=== PATIENT | female | born 1950 | race Caucasian/White ===

== ENCOUNTER → 2021-08-28 15:33 | Outpatient (CLI) | payer MEDICARE, SELFPAY ==
--- NOTE | 2021-08-28 15:42 | DI.ECHO.S_ITS ---
[facility]---------+ [facility] +---------+ : : [address] : : : : [id number] : : : : Phone: [phone]+ Echocardiogram Report + + :Name: BARRETT FOUNTAIN Study Date: 08/28/2021 Height: 65 in : :[facility] ReadingLocation: Weight: 212 lb : : Gender: Female BSA: 2.0 m2 : :: 1950 Age: 71 yrs BP: 169/95 mmHg: :Reason For Study: Atrial fibrillation : :Ordering Physician: KASANDRA, : :FIONA Performed By: Rosalino Ruvalcaba : :Referring: FIONA DENT : + + Interpretation Summary 1) Normal left ventricular thickness, size, wall motion, and systolic function (EF 55-60%). 2) Normal right ventricular size and function. 3) There is a bioprosthetic aortic valve that is well seated and opens well with mean gradient of 9mmHg. Trace aortic regurgitation present. 4) No prior Echo available for comparison. Procedure: A two-dimensional transthoracic echocardiogram with color flow and Doppler was performed. The study quality was technically adequate. There is no prior echocardiogram noted for this patient. Left Ventricle: The left ventricle is normal in size and wall thickness. Left ventricular systolic function is normal. The ejection fraction is estimated to be 55-60%. There are no focal wall motion abnormalities. Right Ventricle: The right ventricle is normal in size and function. Atria: The left atrium is moderately dilated. Right atrial size is normal. The interatrial septum grossly appears intact with no obvious evidence for an atrial septal defect. Mitral Valve: There is mild mitral annular calcification. There is trace mitral regurgitation. Aortic Valve: There is a bioprosthetic aortic valve. The prosthetic aortic valve is well-seated. There is probable normal prosthetic aortic valve function. The aortic valve mean gradient is 9 mmHg. There is trace aortic regurgitation. Tricuspid Valve: The tricuspid valve is normal in structure and function. There is mild tricuspid regurgitation. Pulmonic Valve: The pulmonic valve is not well seen, but is grossly normal. There is a trace or physiologic amount of pulmonic regurgitation. Great Vessels: The aortic root is not well visualized. The dimensions of the ascending aorta are normal. The IVC is of normal diameter and collapses greater than 50% with a sniff. This suggests a low right atrial pressure of 3 mm Hg. Pericardium/ Pleura There is no pericardial effusion. There is no pleural effusion. MMode/2D Measurements & Calculations LVIDd: 5.5 cm asc Aorta Diam: 3.2 cm LVIDs: 3.8 cm FS: 31.6 % IVSd: 0.84 cm LVPWd: 0.98 cm LV rudd. diameter/BSA (cm/m^2): 2.7 LV sys. diameter/BSA (cm/m^2): 1.9 LA A2 area: 23.6 cm2 RA long axis: 4.4 cm LA A4 area: 22.3 cm2 RA area: 13.4 cm2 LA length (vol): 5.9 cm RA vol: 34.8 ml LA vol: 75.2 ml RA : 17.2 ml/m2 LA vol index: 37.1 ml/m2 TAPSE: 1.9 cm Doppler Measurements & Calculations Ao V2 max: 197.4 cm/sec LVOT Max Song: 103.0 cm/sec Ao V2 mean: 143.7 cm/sec LV V1 max P.2 mmHg Ao max P.6 mmHg LV V1 VTI: 28.6 cm Ao mean P.2 mmHg sev ratio: 0.60 Ao V2 VTI: 47.6 cm MV E max song: 109.9 cm/sec TR max song: 222.4 cm/sec MV A max song: 107.7 cm/sec TR max P.8 mmHg MV E/A: 1.0 Med Peak E' Song: 6.6 cm/sec E/E' med: 16.7 Lat Peak E' Song: 9.4 cm/sec E/E' lat: 11.7 E/e' average: 14.2 MV dec time: 0.28 sec Reading Physician:09:51 AM
== END ==
PROVIDERS: Referring Provider Internal Medicine Cardiovascular Disease; Visit Provider Internal Medicine Cardiovascular Disease
DX: I07.1 Rheumatic tricuspid insufficiency (principal); I48.0 Paroxysmal atrial fibrillation; Z95.2 Presence of prosthetic heart valve
CPT/HCPCS: 93306

== ENCOUNTER → 2021-09-02 11:16 | Outpatient (CLI) | payer MEDICARE, SELFPAY ==
--- NOTE | 2021-09-02 | DI.CT.S_ITS ---
PROCEDURE: CT UE RT WO CON INDICATIONS: Primary osteoarthritis, right shoulder TECHNIQUE: Noncontrast 1-1.5 mm thick sections acquired from the acromioclavicular joint to the inferior scapula, with coronal and sagittal reformatting. COMPARISON: SNO Outside Film, CR, XR SHOULDER 2+ VIEWS BILATERAL, 06/08/2021, 14:24. FINDINGS: Image quality: Excellent. Bones: Severe right glenohumeral joint osteoarthritic changes are seen with near complete loss of joint space, extensive subchondral sclerosis, cyst formation and prominent inferior marginal osteophyte formation. There is no fracture or dislocation. Moderate acromioclavicular joint osteoarthritic changes are seen with joint space narrowing, subchondral sclerosis and cyst formation and inferior marginal osteophyte formation depressing on musculotendinous junction of supraspinatus. Visualized right upper ribs are intact. Soft tissues: There is no full-thickness rotator cuff tendon rupture. Mild to moderate supraspinatus muscle atrophy is noted on sagittal images. No significant joint effusion. No abnormal soft tissue calcifications. Calcified pleural plaques are noted along anterior aspect of right upper lobe suggestive of prior asbestos exposure. Rest of right upper lung field is clear. IMPRESSION: 1. Severe right glenohumeral joint osteoarthritis and moderate acromioclavicular joint osteoarthritis. No fracture or dislocation. No suspicious bony lesion. 2. No full-thickness rotator cuff tendon rupture. Mild to moderate supraspinatus muscle atrophy. No significant joint effusion or abnormal soft tissue calcifications. 3. Incidentally noted of calcified pleural plaques along anterior aspect of right upper lobe and likely represent prior asbestos exposure. Dictated by: Armin Odonnell M.D. on 09/02/2021 at 11:37 Approved by: Armin Odonnell M.D. on 09/02/2021 at 11:52
== END ==
PROVIDERS: Referring Provider Orthopaedic Surgery; Visit Provider Orthopaedic Surgery
DX: M19.011 Primary osteoarthritis, right shoulder (principal); J92.9 Pleural plaque without asbestos
CPT/HCPCS: 73200

== ENCOUNTER → 2021-09-23 09:21 | Outpatient (CLI) | payer MEDICARE, SELFPAY ==
[2021-09-23 12:24] LABS: COVID19 -Nasal RAPID Negative (Negative)
== END ==
PROVIDERS: PCP Acupuncturist; Visit Provider Family Medicine Sleep Medicine
DX: Z20.822 Contact with and (suspected) exposure to COVID-19 (principal)
CPT/HCPCS: 87635

== ENCOUNTER → 2021-09-23 09:32 | Outpatient (CLI) | payer MEDICARE, SELFPAY ==
[2021-09-23 10:50] LABS: Add Manual Diff / Slide Review NO; Basophils Absolute Auto 100 /uL (0-100); Basophils Percent Auto 0.8 % (0-2); Eosinophils Absolute Auto 200 /uL (0-450); Eosinophils Percent Auto 3.6 % (2-4); Hematocrit 37.4 % (36-46); Hemoglobin 12.4 g/dL (12.0-16.0); Lymphocytes Absolute Auto 1300 /uL (1100-4500); Lymphocytes Percent Auto 20.8 % (25-40); Mean Corpuscular HGB Conc 33.2 % (30-36); Mean Corpuscular Hemoglobin 28.5 PG (26-34); Mean Corpuscular Volume 85.7 fL (80-100); Monocytes Absolute Auto 500 /uL (0-900); Monocytes Percent Auto 7.5 % (3-14); Neutrophils Absolute Auto 4300 /uL (1500-7000); Neutrophils Percent Auto 67.3 % (50-75); Platelet Count 224 X10^3/uL (150-400); Red Blood Cell Count 4.37 X10^6/uL (4.0-5.2); Red Cell Distribution Width 16.7 % (11.6-14.8); White Blood Cell Count 6.4 X10^3/uL (4.5-11.0)
[2021-09-23 11:04] LABS: BUN Creatinine Ratio 18.2 (6-22); Blood Urea Nitrogen 26 mg/dL (7-17); Calcium 9.1 mg/dL (8.4-10.2); Carbon Dioxide 26 mmol/L (22-32); Chloride 102 mmol/L (98-107); Estimated Glomerular Filt Rate 39 mL/min (>60); Glucose 109 mg/dL (80-110); HEMOLYSIS < 15 (0-50); Potassium 4.4 mmol/L (3.4-5.1); Sodium 136 mmol/L (137-145)
[2021-09-23 11:36] LABS: INR 1.1 (0.9-1.3); Prothrombin Time 12.1 SECONDS (10.1-12.7)
== END ==
PROVIDERS: PCP Acupuncturist; Referring Provider Orthopaedic Surgery; Visit Provider Orthopaedic Surgery
DX: Z51.81 Encounter for therapeutic drug level monitoring (principal); Z01.812 Encounter for preprocedural laboratory examination; Z20.822 Contact with and (suspected) exposure to COVID-19
CPT/HCPCS: 36415; 80048; 85025; 85610; 87635; C9803

== ENCOUNTER 2021-09-24 06:11 | Day surgery (SDC) | payer MEDICARE, SELFPAY ==
[2021-09-17 13:28] VITALS: BMI 35.2
[2021-09-24] VITALS (12 sets, daily range): BP systolic 78–125; BP diastolic 44–74; PULSE 78–110; RESP 14–21; TEMP 35.9–36.6; O2SAT 90–98; BMI 35.2; BMI 35.9
[2021-09-24] MEDS: ACETAMINOPHEN 325 MG TABLET 975 MG PO (07:20)
[2021-09-24] MEDS: PREGABALIN 75 MG CAPSULE PO (07:21)
[2021-09-24] MEDS: CELECOXIB 200 MG CAPSULE PO (07:21)
[2021-09-24] MEDS: VANCOMYCIN 1,000 MG/200 ML PIGGYBACK 200 MG IV ×2 (07:22→18:01)
[2021-09-24] MEDS: LACTATED RINGERS 1,000 ML 42 ML IV (07:22)
--- NOTE | 2021-09-24 07:36 | P.HP_ITS ---
History of Present Illness History of Present Illness Date Patient Seen: 09/24/21 Time Patient Seen: 07:20 Chief complaint: RIGHT TOTAL SHOULDER ARTHROPLASTY *OPB* Narrative: 71-year-old female longstanding shoulder pain due to significant glenohumeral joint arthritis Patient History Medical History Breast cancer (1995) CHF (congestive heart failure) Chronic pain CKD (chronic kidney disease), stage III Dementia with behavioral disturbance Depression Diverticulitis Generalized anxiety disorder HLD (hyperlipidemia) HTN (hypertension) IBS (irritable bowel syndrome) Narcotic dependency, continuous PAF (paroxysmal atrial fibrillation) Vertigo Surgical History H/O aortic valve replacement (02/2012) History of colon surgery History of hysterectomy History of total left knee replacement History of total replacement of right hip Hx of bariatric surgery Hx of bilateral mastectomy (1995) Hx of esophagogastroduodenoscopy Family & Social History Social History: household members children Prior Living Arrangements House Safety & Behavioral: Feels Safe in Current Yes Environment Been Physically Hurt or No Threatened By a Person Suicidal Ideation Description None Suicide Plan Description No Plan Tobacco & Substance use: Smoking Status Never smoker alcohol intake former Substance Use Type does not use Meds Home Medications and Allergies Home Medications Medication Instructions Recorded Confirmed Type albuterol sulfate 90 mcg/actuation 2 puff INHALATION Q4-6H PRN 09/17/21 09/17/21 History aerosol inhaler diltiazem HCl 240 mg 240 mg PO DAILY 09/17/21 09/17/21 History capsule,extended release 24 hr gabapentin 100 mg capsule 200 mg PO BID 09/17/21 09/17/21 History hydromorphone 4 mg tablet 4 mg PO QID 09/17/21 09/17/21 History levothyroxine 75 mcg tablet 75 mcg PO DAILY 09/17/21 09/17/21 History lisinopril 10 mg tablet 10 mg PO DAILY 09/17/21 09/17/21 History methocarbamol 500 mg tablet 500 mg PO BID PRN 09/17/21 09/17/21 History metoprolol succinate 25 mg capsule 25 mg PO DAILY 09/17/21 09/17/21 History sprinkle, ext. release 24 hr morphine 30 mg immediate release 30 mg PO BID 09/17/21 09/17/21 History tablet pravastatin 40 mg tablet 40 mg PO DAILY 09/17/21 09/17/21 History sertraline 50 mg tablet 100 mg PO DAILY 09/17/21 09/17/21 History trazodone 50 mg tablet 25 - 50 mg PO BEDTIME PRN 09/17/21 09/17/21 History triamterene 37.5 1 tab PO DAILY 09/17/21 09/17/21 History mg-hydrochlorothiazide 25 mg tablet warfarin 2.5 mg tablet 2.5 mg PO 3XW 09/17/21 09/17/21 History warfarin 5 mg tablet 5 mg PO 4XW 09/17/21 09/17/21 History Exam Vital Signs (past 8 hours): - 09/24/21 07:01 Temperature 97.3 F L Pulse Rate 78 Respiratory Rate 16 Blood Pressure 125/65 Pulse Oximetry 98 Oxygen Delivery Method Room Air Narrative Exam Narrative: Significant decrease in range of motion to the shoulder in all planes. Pain and crepitus coming from the glenohumeral joint. No sign of any glenohumeral joint instability. No sign of any rotator cuff tears are high-riding humeral head. Normal range of motion of the elbow wrist and fingers. Brisk cap refill 2+ radial pulse. Assessment & Plan Assessment & Plan narrative: Patient with end-stage arthritic changes to the right shoulder this been unresponsive to conservative treatment. Due to this fact, patient is interested in proceeding with a total shoulder arthroplasty. Surgery has been discussed with the patient and all of her questions and concerns have been answered to her full satisfaction. The risk, benefits, alternatives, possible complications, operative course, and postop outcomes were discussed. Complications including but not limiting to bleeding, infection, fracture, nerve injury, continued pain postoperatively or instability postoperatively were discussed in detail. Medical complications including but not limited to deep venous thrombosis event, anesthesia co mplications with excessive bleeding, vascular events or cardiac events and other possible complications were discussed in detail. Need for postoperative rehabilitation and anticipated hospital stay and clinical course were discussed in detail. Patient acknowledges understanding and elects to proceed with surgery. Time Spent With Patient Critical Care time: I spent a total of [] minutes of critical care time on this patient's care today; this time is exclusive of procedural time.
--- NOTE | 2021-09-24 07:36 | PM.PREOP ---
Pre-operative Note Interval Note History & Physical reviewed/Exam performed by Physician: Yes Changes to H&P: No
--- NOTE | 2021-09-24 08:08 | SUR.PREOP ---
Block start time 0750. Monitoring initiated and maintained throughout procedure. Oxygen and medications given per anesthesiologist instructions. Patient remained stable throughout procedure, no adverse reactions noted. Block end time 0800.
[2021-09-24] MEDS: GENTAMICIN 200 MG in SODIUM CHLORIDE 0.9% 100 ML 105 MG IV (08:15)
--- NOTE | 2021-09-24 08:48 | PM.PROC.1 ---
Procedures Date/Time Date of procedure: 09/24/21 Time of procedure: 07:40 General Procedure description: Ultrasound guided interscalene brachial plexus nerve block for post op pain control after right total shoulder arthroplasty by Dr. Ferreira. Risk and benefits of procedure discussed with patient. ASA monitoring applied to patient. O2 given via nasal cannula. 1 mg Versed and 50 mcg fentanyl given for procedural sedation. Skin site was prepped with chlorhexidine and allowed to fully dry. Sterile gloves, mask, hat and probe cover were used to maintain sterility. 2% lidocaine and 30ga needle was used to make a small skin wheal at needle insertion site. Under ultrasound guidance, a 21ga 50mm Pajunk needle was directed into the interscalene groove (middle/anterior scalenes) near the brachial plexus. Patient reported no parasthesias. After negative aspiration, 20 mL 0.5% ropivicaine and 10mg dexamethasone were injected around brachial plexus. Patient tolerated procedure well.
--- NOTE | 2021-09-24 08:50 | SUR.OPER ---
Beach chair with Magali/Alta shoulder positioner. Lower body on padded OR bed. Head in foam padded head cradle, secured with straps. Non-operative arm secured <90 degrees abduction. Pillow under knees. Heels on gel. Safety belt at thigh. Cloth tape over blanket over lower legs. Positioning directed and approved by surgeon.
[2021-09-24] MEDS: LIDOCAINE 1% W/EPI 20 ML INJ (09:50)
--- NOTE | 2021-09-24 10:32 | DI.RAD.S_ITS ---
PROCEDURE: XR SHOULDER RT MIN 2V INDICATIONS: Status post total shoulder TECHNIQUE: 2 views of the shoulder were acquired. COMPARISON: None. FINDINGS: Postsurgical changes of right total shoulder arthroplasty. No shinnecock bone fracture identified. Normal position and alignment of the hardware. IMPRESSION: Expected appearance status post right total shoulder arthroplasty. Dictated by: Gavino Meza M.D. on 09/24/2021 at 15:22 Approved by: Gavino Meza M.D. on 09/24/2021 at 15:23
--- NOTE | 2021-09-24 10:37 | PM.OP.1 ---
Operative Date/Time/Diagnoses Date of procedure: 09/24/21 Time of procedure: 08:00 Pre-op diagnosis: Right shoulder arthritis Post-op diagnosis: same Procedure & Clinicians Procedure: Right total shoulder arthroplasty Same procedure as scheduled: Yes Indications: End-stage arthritis glenohumeral joint Surgeon: Colby Ferreira Senior Medical Billing Specialist: Melanie Moreno Operative Notes Findings: Significant arthritic changes to the glenohumeral joint with flattening of the humeral head and osteophytes anterior inferiorly and posteriorly. No sign of any rotator cuff tears are high-riding humeral head. Significant arthritic changes to the glenoid with full-thickness cartilage loss. Closure Type: primary Specimen(s): none sent Applied: implant(s) (Size 8 stem, medium glenoid, 50 x 19 humeral head) Estimated Blood Loss (mL): 100 Blood products transfused: none Procedure in detail: On date of service, Patient was met in the holding area. The operative site was signed and witnessed by the OR staff. The surgeries once again discussed with the patient and any remaining questions they had were answered fully. Patient was taken back to the operating theater and placed on the operating table in a supine position. Great care was taken to ensure that all bony prominences were properly padded. Patient was then placed into the beach chair position. The head and neck were properly positioned and secured. A timeout was performed verifying patient's name, procedure, and the operative site. The upper extremity was then prepped and draped in the normal sterile fashion. Previously, the bony anatomy and incision were marked out as well as injected with Marcaine with epinephrine. A deltopectoral approach was performed. 10 blade was used to incise the skin and fascial tissue. A deep knife was used to continue sharp dissection until the cephalic vein was visualized. The cephalic vein was dissected free allowing us to expose the deltopectoral interval. This interval was then developed. A Hunt elevator was used to free up the deltoid of any scarring both superficially as well as deeply. The vein and the deltoid were taken laterally while the pectoralis was taken medially. This gave us good visualization of the strap muscles. The clavipectoral fascia was removed and the strap muscles were then retracted medially with the pectoralis. This gave us stabilization of the subscapularis. The circumflex vessels were ligated and the subscapularis was sharply excised off the lesser tuberosity and then tagged. Once the subscapularis was released we're able to dislocate the shoulder. Patient had end-stage arthritic changes to the humeral head as well as the glenoid with large osteophytes anterior inferiorly as well as posteriorly. A Ronger was then used to remove the osteophytes. See findings above for descriptions of the humeral head and glenoid. Next, cutting guide was placed and a saw was used to remove the humeral head. Once the head was removed it was templated. A 50/19 head gave us the best coverage. A starting awl was then used to find the canal and then the humerus was reamed and broached. Trial stem was placed and a variety of heads were trialed. A size 8 stem gave us the best fit. Protector placed for the osteotomy was then placed and and we turned our attention back to the subscapularis as well as the glenoid. The subscapularis was freed up and a 360? fashion. The degenerative anterior and inferior capsular tissue was removed. This was followed by removing the degenerative labral tissue from around the glenoid as well as the biceps insertion. Retractors were used to protect the axillary nerve while we remove the degenerative capsular and labral tissue. This gave us good visualization of the glenoid. Glenoid trials were used until we found the appropriate fit and curvature. A large glenoid provided the best fit. The center hole was drilled followed by reaming of the glenoid. The wound was copiously irrigated after reaming. Next the pegs were drilled and a trial glenoid was impacted into place. Once we were satisfied with the preparation of the glenoid, the final component was cemented into place. This was followed by impaction. We Return to our attention back to the humerus. The protector plate was removed and heads were trialed once again until we found the appropriate fit. Once again the 50/19 head provided the best coverage as well as stability to the glenohumeral joint. Trials were removed and bone tunnels were made into the humeral neck. #2 FiberWire were passed through the bone tunnels for eventual subscapularis repair. The final stem and head were impacted into place and the shoulder was reduced. It was taken through range of motion and was felt to be stable in both posterior translation as well as external and internal rotation with abduction. The subscapularis was repaired back to the lesser tuberosity through the bone tunnels. This was then reinforced with soft tissue repair. Part of the rotator interval was then closed. A drain was placed and the rest of the wound was closed in a layered fashion. The shoulder was then cleaned dried and dressed and the patient was taken to the PACU in stable condition. Patient will follow our postoperative protocol for total shoulder arthroplasty. Complications: none Post-operative Condition: stable Disposition: Acute Care Plan for aftercare: Patient will follow our postoperative protocol for total shoulder arthroplasty. Patient can be discharged home tomorrow if pain adequately controlled.
[2021-09-24] MEDS: LACTATED RINGERS 1,000 ML 125 ML IV ×2 (12:00→18:13)
--- NOTE | 2021-09-24 12:31 | PC.NURSE ---
Day shift: Pt on unit from PACU at approx 1120. Shoulder dressing is CDI. Pt can move bilat fingers. Oriented to room and call light. Bed alarm is on. Tolerating SCD's. Instructed on I.S. use. Call light in reach. She is A&Ox4. Calm and cooperative w/ care. Denies any nausea. Eating lunch now.
[2021-09-24] MEDS: HYDROMORPHONE 4 MG TABLET PO ×3 (12:42→20:20)
--- NOTE | 2021-09-24 14:20 | PT.IIE ---
Current Diagnoses Primary osteoarthritis, right shoulder (09/24/21) Surgery Performed Operation Date: 09/24/21 07:45 Actual Procedures p Total Shoulder Arthroplasty Right(Right) - Colby Ferreira MD Medical History (Last Reviewed 09/24/21 @ 07:38 by Colby Ferreira MD) Breast cancer (1995) CHF (congestive heart failure) Chronic pain CKD (chronic kidney disease), stage III Dementia with behavioral disturbance Depression Diverticulitis Generalized anxiety disorder HLD (hyperlipidemia) HTN (hypertension) IBS (irritable bowel syndrome) Narcotic dependency, continuous PAF (paroxysmal atrial fibrillation) Vertigo Physical Therapy Inpatient Evaluation/Re-Eval M1 PT/OT-IP Prior Functional Status Start: 09/24/21 15:47 Freq: NEEDED Status: Active Protocol: Document 09/24/21 14:20 AB (Rec: 09/24/21 16:01 AB [id number]) Medical Review Prior Functional Status Medical History Reviewed Yes Communication able to make needs known Mobility and Gait pt stated that she is modified independent with all mobilities and ambulation using SPC Social History Household Members children Living Arrangements House Number of Floors (Floors) One Floor Number of Stairs To Enter/Railing? ramp to enter Home Environment High Toilet,Walk in Shower, Ramp Home Equipment Straight Cane,Shower Seat with Backrest,Hand Held Shower, Grab Bars In Shower Additional Social History Comment pt has her daughter to assist her at home M2 PT-IP Current Condition Start: 09/24/21 15:47 Freq: NEEDED Status: Active Protocol: Document 09/24/21 14:20 AB (Rec: 09/24/21 16:01 AB [email or web address]) Physical Therapy Current Condition Current Condition Evaluation Date 09/24/21 Treatment Diagnosis s/p R TSA; difficulty in walking Onset Date 09/24/21 M3 PT-IP Subjective Start: 09/24/21 15:47 Freq: NEEDED Status: Active Protocol: Document 09/24/21 14:20 AB (Rec: 09/24/21 16:01 AB [email or web address]) Subjective Physical Therapy Visit Type Type Initial Evaluation Visit Start Time 14:20 Visit Stop Time 15:10 Total Visit Minutes 50 Number of MUSKRAT TRAPPER Visits 0 Physical Therapy Visit Comments Patient Comments agreeable to do PT Therapy Pain Assessment Pain Present Pain Present Denied Pain M4 PT-IP Mobility and Gait Start: 09/24/21 15:47 Freq: NEEDED Status: Active Protocol: Document 09/24/21 14:20 AB (Rec: 09/24/21 16:01 AB [id number]) PT-Bed Mobility Assessment Supine to Sit Supine to Sit Maximum Assistance,Head of Bed Elevated,Bedrails Sit to Supine Sit to Supine Standby Assistance PT-Transfer Assessment Sit to and From Stand Sit to and from Stand Minimal Assistance,Moderate Assistance,1 Person Assistance ,Use of Upper Extremities Equipment Transfer Assistive Device Gait Belt,Straight Cane Orthotic/Prosthetic Devices or Brace: Yes Comments Mobility Comments educated pt on shoulder precautions. completed supine to sit max A and has HOB elevated up. pt stated that she usually pushes with her RUE but now unable due to sx. pt able to sit on EOB SBA. assisted with sling management . educated pt with pendulum and elbow/wrist/hand exercises . pt still does not have motor control on RUE and will not be safe attempting pendulum exercise. pt completed sit to stand min to mod A and cues and ambulated in room using SPC min to mod A. presents with antalgic gait with increase LLE external rotation. pt stated that L hip is due for a replacement. pt stated that she is tired and just wants to go back to bed. completed sit to supine SBA. positioned pt in bed. call light and table placed within reach. informed pt regarding caregiver training and agreed. stated that I can call her daughter to arrange at 10 am tomorrow. PT called daughter and daughter agreed. Gait Assessment Gait Gait Assistance Required: Minimum Assistance,Moderate Assistance Distance (Feet) 15 Able to Maintain Weight Bearing Status Yes During Gait Assistive Devices Assistive Device Gait Belt,Straight Cane Orthotic/Prosthetic Devices or Brace: No Gait Deviations General Gait Pattern Antalgic,Decreased Stride Length,Decreased Feet Clearance Factors Limiting Gait Function Factors Limiting Gait Function Decreased Activity Tolerance, Decreased Sensation,Decreased Strength,Limited Range of Motion,Poor Balance,Poor Safety Awareness PT-Balance Assessment Sitting Balance and Reactions Static Sitting Balance Ability Good Dynamic Sitting Balance Ability Good Standing Balance and Reactions Static Standing Balance Ability Fair Dynamic Standing Balance Ability Fair Device Used SPC M5 PT-IP Objective Assessments Start: 09/24/21 15:47 Freq: NEEDED Status: Active Protocol: Document 09/24/21 14:20 AB (Rec: 09/24/21 16:01 AB [id number]) Orientation Orientation/Cognition Level of Alertness Alert Orientation Name,Place,Situation Language Function Ability No Deficits Noted Safety Awareness Decreased Safety Awareness Memory Description No Deficits Noted Gross Range of Motion Lower Extremity ROM Assessment Within Functional Limits Strength Lower Extremity Strength Assessment Left Impaired Hip 3+/5 Knee 4-/5 Sensation Assessment Sensation Gross Sensation Right UE Impaired Light Touch Absent Proprioception (Position) Absent Sensation Description Numbness Muscle Tone Muscle Tone WNL No Other Assessments Other Other Assessments pt still does not have RUE motor control M6 PT-IP Treatment Start: 09/24/21 15:47 Freq: NEEDED Status: Active Protocol: Document 09/24/21 14:20 AB (Rec: 09/24/21 16:01 AB [id number]) Physical Therapy Treatment Education Education Provided Precautions,Weight Bearing Status,Post-Op Packet,Safety M7 PT-IP Assessment and Plan Start: 09/24/21 15:47 Freq: NEEDED Status: Active Protocol: Document 09/24/21 14:20 AB (Rec: 09/24/21 16:01 AB [email or web address]) PT Summary Assessment and Plan Potential Rehabilitation Potential Fair Status of Condition at Evaluation Evolving Summary Impairments Pain,ROM,Strength,Balance, Coordination,Sensation,Tone, Cognition,Bed Mobility, Transfers,Gait,Activity Tolerance Assessment Summary pt with s/p R TSA and just had sx this morning. pt currently requiring min to mod A using SPC but will likely progress during hospital stay. caregiver training set up for tomorrow at 10 am. will continue to assess progress. Goals Bed Mobility Goal Standby Assistance Transfer Goal Standby Assistance,Cane Gait Goal Standby Assistance,Cane Gait Distance 150 Days to Meet Goals 5 Frequency of Treatment Frequency Of Treatment Twice a Day Treatment Plan Physical Therapy Treatment Plan Bed Mobility Training,Transfer Training,Gait Training, Therapeutic Exercise,Balance Retraining,Post Op Education, Discharge Planning,Hot or Cold Pack,Neuromuscular Re-ed, Coordination Retraining,Manual Therapy Precautions Shoulder Precautions Sling,PROM,Internal Rotation to Body,No External Rotation, No Abduction,Forward Flexion to 90 degrees,Pendulums Weight Bearing Status Weight Bearing Status Non-Weight Bearing Allowed Weight Bearing Amount (enter % RUE NWB or #) (%) Recommendations To Nursing Amount of Assist Needed 1 Person Assist Discharge Recommendations PT Discharge Recommendations Home with 15/11 Assist Available,Home Health Transportation Needs at Discharge Private Vehicle
--- NOTE | 2021-09-24 14:59 | CM.DANOTE ---
DCP: Payor: [facility] PCP: Quincy Huerta MD Pt is a 71 y.o. F admitted to the floor for a right total shoulder arthroplasty. Pt has history of longstanding shoulder pain. Pt had surgery this morning and tolerated. Pt currently has PT orders for evaluate and treat. DCP met with pt bedside this afternoon to discuss discharge plans. Pt sitting up in bed and does not complain of pain. Pt states she is ready for discharge. Pt states her daughter lives with her in [place] and is her main source of transportation as she does not drive. Pt daughter also a nurse. Pt states that she is independent at baseline with all ADL's. Pt has never used HH before and is aware that if OP therapies are needed that her daughter would help set that up. Pt declines any needs at this time. DCP to continue to follow as anticipated discharge for tomorrow 09/25 and pending PT eval. P: Pt possible d/c tomorrow. DCP to assess tomorrow following PT eval and MD instructions. Cassia Parker RN/YARITZA Discharge Planning/Care Management CM Discharge Assessment Start: 09/24/21 14:55 Freq: Status: Active Protocol: Document 09/24/21 14:55 RACHEL (Rec: 09/24/21 14:58 AJ [id number]) Discharge Planning Assessment Assigned Erp Technical Lead Cassia Parker RN/YARITZA Advance Directives? Yes Advance Directives on File No History Provided By Patient,Medical Record Prior Living Arrangements House Household Members children Type of transporation used prior to Relies on Others admit Comment Daughter drives pt around Independent with ADL's Yes Is patient alert and oriented? Yes Caregiver for Another No Patient/Family Preference Home with Home Health,OP PT Therapy Comment Awaiting MD orders Barriers to Discharge No Discharge Plan Home Community Services Physical Therapy Referrals Initiated None needed Additional Comment At this time Whiteboard Updated in Patient Room with Yes name and ext. # of Erp Technical Lead Comment Instructed to call Review Status In Process Please Provide Date Initial DC 09/24/21 Assessment Was Performed Next Review Type Continued Stay Review Pre-Anesthesia Assessment Start: 09/17/21 13:28 Freq: Status: Complete Protocol: Document 09/17/21 13:28 CAB (Rec: 09/17/21 15:19 CAB [id number]) Pre-Anesthesia Assessment PAC Comment Pt has dementia and daughter, Grecia will be with her, she is her POA and pt lives with her . Patient Information Reviewed Via Chart Review,Phone Assessment Assessment Completed With Child Comment Daughter Grecia H&P Completed Within 30 Days Yes Comment Needs to do lab and Covid Primary Care Provider [facility] Medical Clearance Received Yes Seen Specialist in Last 12 Months Yes Specialist Seen [employer] Member,Orthopedist Comment PCP visit 07/01/21 w/clearance scanned to record Primary Language Estonian Sales Systems Engineer Required No Height 165.1 cm Weight 96.162 kg Body Mass Index (BMI) 35.2 Barriers to Learning Memory Hx Anesthesia Reactions No Hx Family Anesthesia Reaction No Hx Malignant Hyperthermia No Hx Blood Transfusions No alcohol intake former Smoking Status Never smoker Substance Use Type does not use Pain Present Pain Reported Musculoskeletal Symptoms Abnormal Gait,Difficulty Walking,Limited Range of Motion History of Falling (Recent or History of Yes ) Patient is completely paralyzed or No completely immobile Prosthesis or Orthotic Device Cane Mental Status Forgets limitations Comment Requires assistance with ambulation Is patient on oxygen? No Does patient have COLE/SOB No Hx Sleep Apnea No Currently Taking a Beta Severo Yes: Metoprolol Hx Chest Pain Yes: With over exertion, anxiety Hx SOB No Hx Syncope or Dizziness Yes: Dizziness with over exertion Anti-Coagulant Therapy Yes: Warfarin-daughter will check with coumadin clinic on when to hold Has a [employer] Member Yes: Dr. [id number] clearance 08/24/21 Cardiac Testing Yes: Echo @ [facility] 08/28/21 Hx Pacemaker/ICD No Pacemaker Rep Required? No Cardiac Clearance Received Yes Comment Cardiac records scanned and in surgery folder for dos Diet Type At Home Regular dysphagia No Gastrointestinal Symptoms Constipation Urinary Catheter Present No Hx Urinary Self Catheterization No Diabetes No Patient No Lactating No Presence of External or Internal Medical Yes Devices Have you had any close contact with No someone diagnosed with COVID-19? Received a COVID vaccine? No Marital Status Lives With children Prior Living Arrangements House Number of Floors (Floors) One Floor Support System Child/Children Does the Patient Have Assistance After Yes: Lives w/daughter Grecia Surgery who cares for pt Patient Discharge Plan Description Return Home Comment Pt advised 1-2 night length of stay per surgeon Feels Safe in Current Environment Yes Been Physically Hurt or Threatened By a No Person in Current Environment Do you have thoughts of harming yourself None or others? Are you currently considering suicide? No Do you have a plan to hurt yourself or No Plan others? Do You Have Any Spiritual Beliefs That No May Affect Your HC Choices? Do You Have Any Cultural Practices That No May Affect Your HC Choices? Comment Isaac Who Can We Speak to About Patient's Care Family, friends Identifying Code for Release of Patient Declines to issue Information Health Care Proxy/Next of Kin Grecia (daughter) Health Care Proxy Emergency Contact Name Grecia (daughter) Emergency Contact Advance Directives? Yes Advance Directives on File No Requested Patient Bring Advanced Yes Directives DOS Power of Feltmaker And Weigher Yes Power of Feltmaker And Weigher Name Grecia (daughter) Power of Feltmaker And Weigher PAC Instructions Do not shave/clip surgical site,Durable medical equipment ,Medications to take/avoid, Nasal antibiotic,No ETOH/ petroleum product on skin DOS, NPO,Post-op transportation,Pre -surgical wash,Sturdy shoes/ comfortable clothes,Do not bring valuables and remove jewelry
[2021-09-24] MEDS: WARFARIN 5 MG TABLET PO (17:27)
[2021-09-24] MEDS: MAGNESIUM HYDROXIDE 30 ML UDC PO (20:20)
[2021-09-24] MEDS: GABAPENTIN 100 MG CAPSULE 200 MG PO (20:20)
[2021-09-24] MEDS: DOCUSATE 100 MG CAPSULE PO (20:20)
[2021-09-24] MEDS: MORPHINE IR 15 MG TABLET 30 MG PO (20:20)
[2021-09-25 01:25] VITALS: BP 110/56; PULSE 89; RESP 16; TEMP 36.6; O2SAT 96
[2021-09-25] MEDS: LEVOTHYROXINE 75 MCG TABLET PO (06:48)
[2021-09-25 06:54] LABS: Hemoglobin 8.9 g/dL (12.0-16.0); Mean Corpuscular HGB Conc 32.9 % (30-36); Mean Corpuscular Hemoglobin 28.4 PG (26-34); Mean Corpuscular Volume 86.3 fL (80-100); Platelet Count 174 X10^3/uL (150-400); Red Blood Cell Count 3.12 X10^6/uL (4.0-5.2); Red Cell Distribution Width 16.6 % (11.6-14.8); White Blood Cell Count 11.2 X10^3/uL (4.5-11.0)
[2021-09-25] MEDS: PRAVASTATIN 20 MG TABLET 40 MG PO (08:48)
[2021-09-25] MEDS: DOCUSATE 100 MG CAPSULE PO (08:48)
[2021-09-25] MEDS: METOPROLOL ER 25 MG TABLET PO (08:48)
[2021-09-25] MEDS: SERTRALINE 50 MG TABLET 100 MG PO (08:48)
[2021-09-25] MEDS: MORPHINE IR 15 MG TABLET 30 MG PO (08:48)
[2021-09-25] MEDS: dilTIAZem CD 240 MG CAP PO (08:48)
[2021-09-25] MEDS: HYDROMORPHONE 4 MG TABLET PO (08:48)
[2021-09-25] MEDS: GABAPENTIN 100 MG CAPSULE 200 MG PO (08:49)
[2021-09-25 08:50] VITALS: BP 127/62; PULSE 91; RESP 18; TEMP 36.2; O2SAT 96
--- NOTE | 2021-09-25 09:14 | P.DS_ITS ---
History of Present Illness History of Present Illness Date Patient Seen: 09/25/21 Time Patient Seen: 09:14 Chief complaint: Shoulder pain Narrative: Patient's shoulder pain is well controlled with current pain meds denies fever or chills. No nausea vomiting patient assistance home. Discharge Providers Provider Discharge Date: 09/25/21 Primary care physician: Quincy Huerta LAC Consults: 09/24/21 10:29 Consult to Discharge Planning Routine Comment: Consult to Physical Therapy Evaluate & Treat Comment: Physician Instructions: Evaluate and Treat Consult to Respiratory Therapy Evaluate & Treat Comment: Physician Instructions: Evaluate and treat Discharge provider: Nam Aggarwal PA-C Summary Hospital Course Discharge Diagnosis: Right shoulder arthritis Hospital Course: Right total shoulder arthroplasty Same procedure as scheduled: Yes Indications: End-stage arthritis glenohumeral joint Surgeon: Colby Ferreira Office Services Representative: Melanie Moreno Operative Notes Findings: Significant arthritic changes to the glenohumeral joint with flattening of the humeral head and osteophytes anterior inferiorly and posteriorly.? No sign of any rotator cuff tears are high-riding humeral head.? Significant arthritic changes to the glenoid with full-thickness cartilage loss. Closure Type: primary Specimen(s): none sent Applied: implant(s) (Size 8 stem, medium glenoid, 50 x 19 humeral head) Estimated Blood Loss (mL): 100 Blood products transfused: none Patient admitted to the hospital for the above-mentioned procedure. Patient consented to the same. Patient underwent right total shoulder arthroplasty on September 24, 2021. Patient back in her room recovering well as in stable condition patient will be discharged home today after physical therapy if safe for home environment Exam Vital Signs (past 8 hours): - 09/25/21 01:25 09/25/21 08:50 Temperature 97.9 F 97.1 F L Pulse Rate 89 91 H Respiratory Rate 16 18 Blood Pressure 110/56 L 127/62 Pulse Oximetry 96 96 Oxygen Delivery Method Room Air Oxygen Flow Rate 0 Narrative Exam Narrative: 71-year-old female resting comfortably in bed having breakfast. She is in no acute distress. Motor functions intact distal right upper extremity. Good capillary refill. Sensation grossly intact to light touch. Dressing is Clean, dry, intact.. Objective Labs Result Diagrams: 09/25/21 06:14 Labs: Laboratory Results - last 24 hr 09/25/21 06:14 WBC 11.2 H D RBC 3.12 L Hgb 8.9 L Hct 27.0 L MCV 86.3 MCH 28.4 MCHC 32.9 RDW 16.6 H Plt Count 174 PFSH Medical History Breast cancer (1995) CHF (congestive heart failure) Chronic pain CKD (chronic kidney disease), stage III Dementia with behavioral disturbance Depression Diverticulitis Generalized anxiety disorder HLD (hyperlipidemia) HTN (hypertension) IBS (irritable bowel syndrome) Narcotic dependency, continuous PAF (paroxysmal atrial fibrillation) Vertigo Surgical History H/O aortic valve replacement (02/2012) History of colon surgery History of hysterectomy History of total left knee replacement History of total replacement of right hip Hx of bariatric surgery Hx of bilateral mastectomy (1995) Hx of esophagogastroduodenoscopy Social History household members: children Smoking Status: Never smoker alcohol intake: former Discharge Assessment & Plan Assessment and Plan Assessment: Patient progressing as expected status post right total shoulder arthroplasty Plan of Treatment: Discharge home today in stable condition. Discharge Plan Discharge Plan Patient Disposition: Home Discharge orders & Medications Discharge Orders: Discharge (Order); Ordered 09/25/21 Ordered By: Nam Aggarwal Prescriptions: New hydromorphone [Dilaudid] 4 mg tablet 4 mg PO Q6H PRN (Reason: pain) Qty: 40 0RF Rx Instructions: post op pain Continued methocarbamol 500 mg Tablet 500 mg PO BID PRN (Reason: Muscle Spasm) 0RF trazodone 50 mg Tablet 25 - 50 mg PO BEDTIME PRN (Reason: Insomnia) 0RF pravastatin 40 mg Tablet 40 mg PO DAILY 0RF diltiazem HCl 240 mg Capsule,Extended Release 24hr 240 mg PO DAILY 0RF warfarin 2.5 mg Tablet 2.5 mg PO 3XW 0RF levothyroxine 75 mcg Tablet 75 mcg PO DAILY 0RF morphine 30 mg Tablet 30 mg PO BID 0RF lisinopril 10 mg Tablet 10 mg PO DAILY 0RF warfarin 5 mg Tablet 5 mg PO 4XW 0RF triamterene-hydrochlorothiazid 37.5-25 mg Tablet 1 tab PO DAILY 0RF gabapentin 100 mg Capsule 200 mg PO BID 0RF albuterol sulfate 90 mcg/actuation Hfa Aerosol Inhaler 2 puff INHALATION Q4-6H PRN (Reason: Wheezing) 0RF sertraline 50 mg Tablet 100 mg PO DAILY 0RF metoprolol succinate 25 mg Capsule,Sprinkle,Er 24hr 25 mg PO DAILY 0RF Discontinued hydromorphone 4 mg Tablet 4 mg PO QID 0RF Follow up/Referrals: Quincy Huerta LAC [Primary Care Provider] - Colby Ferreira MD [Physician] - (2 weeks) Diet/Activity/Treatments Diet: Diet as Tolerated Activity: Patient will follow our postoperative protocol for total shoulder arthroplasty. Cold/Heat Therapy: Ice to shoulder as needed Skin/Wound/Dressing Care Report to your healthcare provider any signs of infection, such as:: chills, fever, increased pain, unusual drainage and unusual redness Dressing: Keep dressing clean and dry Visit Report/Discharge Packet Instructions: DI for Shoulder Replacement Stand Alone Forms: Surgery Discharge Discharge Data Primary Care Provider: Quincy Huerta Attending Provider: Colby Ferreira Quality VTE Deep Vein Thrombosis/Pulmonary Embolism Present on Admission: No
--- NOTE | 2021-09-25 09:35 | CM.DPC ---
DCP Cont.: Per MD, patient medically stable for discharge today. Pt was seen by PT yesterday and recommends home with / assist. PT is going to see pt today prior to discharge. No further needs identified. P: Pt to discharge home today via daughter POV. Pt denies any need for HH and states her daughter takes care of her needs as she is a nurse. Cassia Pinedo RN/DCP
--- NOTE | 2021-09-25 10:00 | PT.IPTN ---
Current Diagnoses Primary osteoarthritis, right shoulder (09/24/21) Surgery Performed Operation Date: 09/24/21 07:45 Actual Procedures p Total Shoulder Arthroplasty Right(Right) - Colby Ferreira MD Physical Therapy Treatment Note M2 PT-IP Current Condition Start: 09/24/21 15:47 Freq: NEEDED Status: Active Protocol: Document 09/24/21 14:20 AB (Rec: 09/24/21 16:01 AB [id number]) Physical Therapy Current Condition Current Condition Evaluation Date 09/24/21 Treatment Diagnosis s/p R TSA; difficulty in walking Onset Date 09/24/21 M3 PT-IP Subjective Start: 09/24/21 15:47 Freq: NEEDED Status: Active Protocol: Document 09/25/21 10:00 AB (Rec: 09/25/21 10:59 AB [id number]) Subjective Physical Therapy Visit Type Type Treatment Note Visit Start Time 10:00 Visit Stop Time 10:35 Total Visit Minutes 35 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 Physical Therapy Visit Comments Patient Comments agreeable to do PT Therapy Pain Assessment Pain When Pain Assessed At Rest Pain Present Pain Present Pain Reported Location shoulder Intensity 2 Scale Used Numeric (0 - 10) Pain Management Techniques Distraction,Modification of Treatment,Re-positioning, Timing of Activity with Medications M4 PT-IP Mobility and Gait Start: 09/24/21 15:47 Freq: NEEDED Status: Active Protocol: Document 09/25/21 10:00 AB (Rec: 09/25/21 10:59 AB [id number]) PT-Bed Mobility Assessment Supine to Sit Supine to Sit Maximum Assistance,Head of Bed Elevated,Bedrails Sit to Supine Sit to Supine Maximum Assistance,1 Person Assistance PT-Transfer Assessment Sit to and From Stand Sit to and from Stand Moderate Assistance,1 Person Assistance,Use of Upper Extremities Equipment Transfer Assistive Device Gait Belt,Straight Cane Orthotic/Prosthetic Devices or Brace: Yes Comments Mobility Comments caregiver trainind conducted. daughter in room. pt completed supine to sit max A and daughter was able to assist pt. pt can be impulsive and cued for safety. educated daughter regarding pt's shoulder precautions, exercises and sling management . daughter was able to put the sling on pt. pt completed sit to stand with daughter assisting mod A and pt ambulated in room using SPC with daughter also assisting. pt went back to bed. stated that she is tired and wants to rest. pt and daughter without any other concerns. call light and table placed within reach. Gait Assessment Gait Gait Assistance Required: Minimum Assistance Distance (Feet) 30 Able to Maintain Weight Bearing Status Yes During Gait Assistive Devices Assistive Device Gait Belt,Straight Cane Orthotic/Prosthetic Devices or Brace: Yes Gait Deviations General Gait Pattern Antalgic,Decreased Stride Length,Decreased Feet Clearance,Step-to Gait Factors Limiting Gait Function Factors Limiting Gait Function Decreased Activity Tolerance, Decreased Strength,Difficulty Following Directions,Limited Range of Motion,Pain,Poor Balance,Poor Safety Awareness M5 PT-IP Objective Assessments Start: 09/24/21 15:47 Freq: NEEDED Status: Active Protocol: Document 09/24/21 14:20 AB (Rec: 09/24/21 16:01 AB [id number]) Orientation Orientation/Cognition Level of Alertness Alert Orientation Name,Place,Situation Language Function Ability No Deficits Noted Safety Awareness Decreased Safety Awareness Memory Description No Deficits Noted Gross Range of Motion Lower Extremity ROM Assessment Within Functional Limits Strength Lower Extremity Strength Assessment Left Impaired Hip 3+/5 Knee 4-/5 Sensation Assessment Sensation Gross Sensation Right UE Impaired Light Touch Absent Proprioception (Position) Absent Sensation Description Numbness Muscle Tone Muscle Tone WNL No Other Assessments Other Other Assessments pt still does not have RUE motor control M6 PT-IP Treatment Start: 09/24/21 15:47 Freq: NEEDED Status: Active Protocol: Document 09/25/21 10:00 AB (Rec: 09/25/21 10:59 AB [email or web address]) Physical Therapy Treatment Exercises Exercises Shoulder Pendulums,Elbow Flexion/Extension,Wrist ROM, Hand ROM Education Education Provided Precautions,Weight Bearing Status,Post-Op Packet,Safety M7 PT-IP Assessment and Plan Start: 09/24/21 15:47 Freq: NEEDED Status: Active Protocol: Document 09/25/21 10:00 AB (Rec: 09/25/21 10:59 AB [email or web address]) PT Summary Assessment and Plan Potential Rehabilitation Potential Good Summary Impairments Pain,ROM,Strength,Balance, Coordination,Sensation,Tone, Cognition,Bed Mobility, Transfers,Gait,Activity Tolerance Progress Towards Goals Slow Progress due to Medical Issues Assessment Summary caregiver training conducted and daughter is able to assist pt safely. pt plans to go home today and may go home when medically stable. Goals Bed Mobility Goal Standby Assistance Transfer Goal Standby Assistance,Cane Gait Goal Standby Assistance,Cane Gait Distance 150 Days to Meet Goals 5 Frequency of Treatment Frequency Of Treatment Twice a Day Treatment Plan Physical Therapy Treatment Plan Bed Mobility Training,Transfer Training,Gait Training, Therapeutic Exercise,Balance Retraining,Post Op Education, Discharge Planning,Hot or Cold Pack,Neuromuscular Re-ed, Coordination Retraining,Manual Therapy Precautions Shoulder Precautions Sling,PROM,Internal Rotation to Body,No External Rotation, No Abduction,Forward Flexion to 90 degrees,Pendulums Weight Bearing Status Weight Bearing Status Non-Weight Bearing Allowed Weight Bearing Amount (enter % RUE NWB or #) (%) Recommendations To Nursing Amount of Assist Needed 1 Person Assist Discharge Recommendations PT Discharge Recommendations Home with 15/11 Assist Available,Home Health Transportation Needs at Discharge Private Vehicle
[2021-09-25 10:13] VITALS: PULSE 97
--- NOTE | 2021-09-25 11:39 | PC.NURSE ---
Day shift: Paperwork signed and all questions answered. Pt's Daughter/Caregiver in room for d/c teachings and when PT was teaching. Dressing remains CDI. Sling in place. Pt steady on feet and voiding well. Pain well controlled per JUN.
--- NOTE | 2021-09-25 11:42 | CM.MNRNOTE ---
Day shift: Left unit via at approx 1130. Taken by Chepe PEPE.
== END 2021-09-25 11:44 | disposition home or self-care (01) ==
LOC: OR 06:13 → AC 06:14
PROVIDERS: PCP Acupuncturist; Referring Provider Acupuncturist; Visit Provider Orthopaedic Surgery
PROC: 0RQJ0ZZ Repair Right Shoulder Joint, Open Approach (ICD-10-PCS; CPT 23472; principal; 2021-09-24 07:45)
DX: M19.011 Primary osteoarthritis, right shoulder (principal); I48.91 Unspecified atrial fibrillation; I13.0 Hypertensive heart and chronic kidney disease with heart failure and stage 1 through stage 4 chronic kidney disease, or unspecified chronic kidney disease; N18.30 Chronic kidney disease, stage 3 unspecified; I50.9 Heart failure, unspecified; E78.5 Hyperlipidemia, unspecified; Z79.01 Long term (current) use of anticoagulants
CPT/HCPCS: 23472; 36415; 64450; 73030; 85027; 85610; 97162; 97530; C1776; J1100; J1650; J2250; J2405; J2704; J3010

== ENCOUNTER 2022-10-11 00:44 | Day surgery (SDC) | payer OTHER, SELFPAY ==
[2021-09-24 11:21] VITALS: BMI 35.9
[2022-10-11] VITALS (25 sets, daily range): BP systolic 124–221; BP diastolic 58–92; PULSE 63–81; RESP 13–26; TEMP 36.3–37; O2SAT 91–98; BMI 33.3
--- NOTE | 2022-10-11 01:15 | ED.SKABFB ---
HPI - Skin/Abscess/Foreign Bdy General Chief complaint: Skin/Abscess/Foreign Body Stated complaint: feels like food is stuck in throat Time Seen by Provider: 10/11/22 01:15 Source: patient and family Mode of arrival: Ambulatory Limitations: no limitations History of Present Illness HPI narrative: 72-year-old woman with a history of mechanical heart valve anticoagulated on Coumadin, paroxysmal atrial fibrillation, fibromyalgia with narcotic dependence, hypothyroidism, hypertension who presents complaining that she has food stuck in her throat. At approximately 4:45 p.m. this afternoon she was eating a pork chop and the pork chop did not make it all the way to her stomach. She is been trying soda, bouncing up and down a bit, at this point she is not able to even manage secretions and is increasingly uncomfortable. She has had food feel like it stuck before but is always passed without any intervention. She describes no recent fevers, cough, chills, abdominal pain, vomiting or diarrhea. Related Data Home Medications Medication Instructions Recorded Confirmed albuterol sulfate 90 mcg/actuation 2 puff inhalation Q4-6H PRN 09/17/21 10/11/22 aerosol inhaler Wheezing diltiazem HCl 240 mg 240 mg PO DAILY 09/17/21 10/11/22 capsule,extended release 24 hr gabapentin 100 mg capsule 200 mg PO BID 09/17/21 09/17/21 levothyroxine 75 mcg tablet 75 mcg PO DAILY 09/17/21 09/17/21 lisinopril 10 mg tablet 10 mg PO DAILY 09/17/21 09/17/21 methocarbamol 500 mg tablet 500 mg PO BID PRN Muscle Spasm 09/17/21 09/17/21 metoprolol succinate 25 mg capsule 25 mg PO DAILY 09/17/21 10/11/22 sprinkle, ext. release 24 hr morphine 30 mg immediate release 30 mg PO BID 09/17/21 09/24/21 tablet pravastatin 40 mg tablet 40 mg PO DAILY 09/17/21 09/17/21 sertraline 50 mg tablet 100 mg PO DAILY 09/17/21 09/17/21 trazodone 50 mg tablet 25 - 50 mg PO BEDTIME PRN Insomnia 09/17/21 09/17/21 triamterene 37.5 1 tab PO DAILY 09/17/21 09/17/21 mg-hydrochlorothiazide 25 mg tablet warfarin 2.5 mg tablet 2.5 mg PO 3XW 09/17/21 10/11/22 warfarin 5 mg tablet 5 mg PO 4XW 09/17/21 09/17/21 Previous Rx's Medication Instructions Recorded hydromorphone 4 mg tablet 4 mg PO Q6H PRN pain #40 tabs 09/25/21 (Dilaudid) Allergies Allergy/AdvReac Type Severity Reaction Status Date / Time Latex, Natural Rubber Allergy Mild Verified 10/11/22 06:43 metal Allergy Uncoded 10/11/22 06:43 Review of Systems Review of Systems Narrative: Pertinent positive and negative findings as per HPI Patient History Medical History Breast cancer (1995) CHF (congestive heart failure) Chronic pain CKD (chronic kidney disease), stage III Dementia with behavioral disturbance Depression Diverticulitis Generalized anxiety disorder HLD (hyperlipidemia) HTN (hypertension) IBS (irritable bowel syndrome) Narcotic dependency, continuous PAF (paroxysmal atrial fibrillation) Vertigo Surgical History H/O aortic valve replacement (02/2012) History of colon surgery History of hysterectomy History of total left knee replacement History of total replacement of right hip Hx of bariatric surgery Hx of bilateral mastectomy (1995) Hx of esophagogastroduodenoscopy Social History household members: children Smoking Status: Never smoker alcohol intake: former Smoking Status: Never smoker alcohol intake frequency: 0-2 drinks per day Substance Use Type: does not use Exam Initial Vital Signs Initial Vital Signs: Vital Signs Temperature 97.4 F L 10/11/22 00:46 Pulse Rate 66 10/11/22 00:46 Respiratory Rate 18 10/11/22 00:46 Blood Pressure 210/87 H 10/11/22 00:46 Pulse Oximetry 96 10/11/22 00:46 Oxygen Delivery Method Room Air 10/11/22 00:46 General: Chronically ill-appearing woman who appears uncomfortable and is spitting out secretions. Able to cooperate fully with exam. HEENT: Moist mucous membranes, normal sclera with reactive pupils, Neck: No JVD, supple Respiratory: Lungs are clear to auscultation, no wheezing no rales no rhonchi. Full and symmetrical air movement Cardiac: Regular rate and rhythm, mechanical click with 2/6 murmur. Abdomen: Soft, mild epigastric tenderness, good bowel tones, no flank pain Skin: Warm and dry, no rashes Neurologic: Grossly neurologically intact with no obvious asymmetries or abnormalities Extremities: No trauma, well perfused, 1+ chronic lower extremity edema Psych: Cooperative, appropriate insight and affect Course Orders Ordered: ED Orders 10/11/22 01:40 Complete Blood Count AUTO DIFF Stat Comprehensive Metabolic Panel Stat Prothrombin Time INR Stat Hydromorphone HCl (Hydromorphone 0.5 Mg Inj) 1 mg IV Q15MIN PRN PRN Reason: Pain, Last Admin: 10/11/22 04:16 Dose: 1 mg Documented By: Admin: 10/11/22 01:45 Dose: 1 mg Documented By: CINDI Sodium Chloride (Normal Saline 0.9%) 1,000 mls @ 150 mls/hr IV CONT [place] Last Admin: 10/11/22 02:49 Dose: 150 mls/hr Documented By: SB Lactated Ringer's (Lactated Ringers) 1,000 mls @ 42 mls/hr IV NOW ONE Stop: 10/12/22 06:17 Last Admin: 10/11/22 06:29 Dose: 42 mls/hr Documented By: LB Discontinued Medications Sodium Chloride (Normal Saline 0.9%) 1,000 mls @ 1,000 mls/hr IV BOLUS ONE Stop: 10/11/22 02:23 Last Infusion: 10/11/22 02:49 Dose: 0 mls/hr Documented By: Admin: 10/11/22 01:45 Dose: 1,000 mls/hr Documented By: SB Vital Signs Vital signs: Vital Signs - 8 hr 10/11/22 00:46 10/11/22 00:54 10/11/22 00:55 Temperature 97.4 F L Pulse Rate 66 68 67 Respiratory Rate 18 18 16 Blood Pressure 210/87 H Pulse Oximetry 96 97 97 Oxygen Delivery Method Room Air 10/11/22 00:55 10/11/22 01:00 10/11/22 01:30 Temperature Pulse Rate 65 66 Respiratory Rate 14 16 Blood Pressure 221/84 H Pulse Oximetry 96 98 Oxygen Delivery Method 10/11/22 01:44 10/11/22 01:44 10/11/22 02:00 Temperature Pulse Rate 64 63 Respiratory Rate 23 18 Blood Pressure 217/87 H Pulse Oximetry 94 92 Oxygen Delivery Method Room Air 10/11/22 02:18 10/11/22 02:18 10/11/22 02:30 Temperature Pulse Rate 75 74 Respiratory Rate 17 16 Blood Pressure 216/88 H Pulse Oximetry 96 95 Oxygen Delivery Method 10/11/22 03:00 10/11/22 03:01 10/11/22 03:01 Temperature Pulse Rate 75 72 Respiratory Rate 20 15 Blood Pressure 180/80 H Pulse Oximetry 95 95 Oxygen Delivery Method Room Air 10/11/22 03:30 10/11/22 04:00 10/11/22 04:00 Temperature Pulse Rate 75 78 Respiratory Rate 26 H 19 Blood Pressure 201/79 H Pulse Oximetry 93 95 Oxygen Delivery Method 10/11/22 04:12 10/11/22 04:12 10/11/22 04:30 Temperature Pulse Rate 81 75 Respiratory Rate 21 17 Blood Pressure 214/92 H Pulse Oximetry 97 95 Oxygen Delivery Method 10/11/22 05:00 10/11/22 05:01 10/11/22 05:01 Temperature Pulse Rate 75 74 Respiratory Rate 14 13 Blood Pressure 179/74 H Pulse Oximetry 95 96 Oxygen Delivery Method 10/11/22 05:30 10/11/22 06:00 10/11/22 06:00 Temperature Pulse Rate 75 74 Respiratory Rate 19 20 Blood Pressure 177/73 H Pulse Oximetry 91 95 Oxygen Delivery Method 10/11/22 06:30 10/11/22 06:37 Temperature 98.0 F Pulse Rate 73 65 Respiratory Rate 17 Blood Pressure 190/78 H 171/77 H Pulse Oximetry 96 Oxygen Delivery Method Room Air MDM - Skin/Abscess/Foreign Bdy Lab Data 10/11/22 01:40 10/11/22 01:40 Labs: Lab Results 10/11/22 10/11/22 10/11/22 Range/Units 01:40 01:40 01:40 WBC 11.1 H (4.5-11.0) X10^3/uL RBC 4.24 (4.0-5.2) X10^6/uL Hgb 12.2 (12.0-16.0) g/dL Hct 37.0 (36-46) % MCV 87.4 (80-100) fL MCH 28.7 (26-34) PG MCHC 32.9 (30-36) % RDW 15.6 H (11.6-14.8) % Plt Count 206 (150-400) X10^3/uL Neut % (Auto) 76.7 H (50-75) % Lymph % (Auto) 13.6 L (25-40) % [place] % (Auto) 6.1 (3-14) % Eos % (Auto) 3.0 (2-4) % Baso % (Auto) 0.6 (0-2) % Neut # (Auto) 8500 H (6196-2599) /uL Lymph # (Auto) 1500 (4198-6415) /uL [place] # (Auto) 700 (0-900) /uL Eos # (Auto) 300 (0-450) /uL Baso # (Auto) 100 (0-100) /uL PT 18.6 H (10.1-12.7) SECONDS INR 1.6 H (0.9-1.3) Sodium 136 L (137-145) mmol/L Potassium 3.9 (3.4-5.1) mmol/L Chloride 104 (98-107) mmol/L Carbon Dioxide 28 (22-32) mmol/L BUN 17 (7-17) mg/dL Creatinine 0.98 (0.52-1.04) mg/dL Estimated GFR > 60 (>60) mL/min BUN/Creatinine Ratio 17.3 (6-22) Glucose 123 H (80-110) mg/dL Calcium 8.6 (8.4-10.2) mg/dL Total Bilirubin 0.4 (0.2-1.3) mg/dL AST 21 (14-36) IU/L ALT 17 (<35) IU/L Alkaline Phosphatase 75 (38-126) U/L Total Protein 6.8 (6.3-8.2) g/dL Albumin 3.6 (3.5-5.0) g/dL Globulin 3.2 (1.7-4.1) g/dL Albumin/Globulin Ratio 1.1 (1.0-2.8) MDM Narrative Medical decision making narrative: CC: Something is stuck in my throat, acute issue uncertain prognosis Complicating co-morbidities: Mechanical heart valve, opioid dependence, hypertension, hypothyroidism Data collected from: patient, daughter Medical records reviewed: [facility] from [facility] are reviewed Differential considered: Esophageal foreign body, esophageal stricture, bowel obstruction Exam documented above, pertinent findings include: Alert appropriate exam is benign with the exception of discomfort in the lower esophagus in the fact that she continues to spit her own secretions because she can not swallow Lab Test results independently reviewed as above. Pertinent findings: Independently reviewed EKG as above Imaging studies independently reviewed: Consultations: Care is reviewed with Dr. Owen, general surgery on-call. Patient will need to go to the OR for impacted esophageal foreign body Treatments: Fluids, pain control Re-evaluations: Discussion: 72-year-old woman who was eating pork chops this afternoon. At 4:45 a.m. she felt a bit of the pork chop stick in the lower esophagus and it has not moved since. She is not able to swallow any secretions. She is uncomfortable. Care is reviewed with Dr. Owen. Will make sure that the patient is comfortable and better hydrated over the course of the evening and in the charging plug placer hours will anticipate patient going to the operating room for surgical removal of impacted foreign body. to the OR at 645 am Discharge Plan Departure Patient Disposition: Admitted to Surgery Clinical Impression: Esophageal foreign body Admit Date/Time: 10/11/22 07:04 Admit Provider: Jerrica Owen
[2022-10-11] MEDS: HYDROMORPHONE 0.5 MG INJ 1 MG IV ×2 (01:45→04:16)
[2022-10-11] MEDS: SODIUM CHLORIDE 0.9% 1,000 ML 1000 ML IV (01:45)
[2022-10-11 02:01] LABS: INR 1.6 (0.9-1.3); Prothrombin Time 18.6 SECONDS (10.1-12.7)
[2022-10-11 02:05] LABS: Add Manual Diff / Slide Review NO; Basophils Absolute Auto 100 /uL (0-100); Basophils Percent Auto 0.6 % (0-2); Eosinophils Absolute Auto 300 /uL (0-450); Hemoglobin 12.2 g/dL (12.0-16.0); Lymphocytes Absolute Auto 1500 /uL (1100-4500); Lymphocytes Percent Auto 13.6 % (25-40); Mean Corpuscular HGB Conc 32.9 % (30-36); Mean Corpuscular Hemoglobin 28.7 PG (26-34); Mean Corpuscular Volume 87.4 fL (80-100); Monocytes Absolute Auto 700 /uL (0-900); Monocytes Percent Auto 6.1 % (3-14); Neutrophils Absolute Auto 8500 /uL (1500-7000); Neutrophils Percent Auto 76.7 % (50-75); Platelet Count 206 X10^3/uL (150-400); Red Blood Cell Count 4.24 X10^6/uL (4.0-5.2); Red Cell Distribution Width 15.6 % (11.6-14.8); White Blood Cell Count 11.1 X10^3/uL (4.5-11.0)
[2022-10-11 02:06] LABS: Alanine Aminotransferase 17 IU/L (<35); Albumin 3.6 g/dL (3.5-5.0); Albumin Globulin Ratio 1.1 (1.0-2.8); Alkaline Phosphatase 75 U/L (38-126); Aspartate Aminotransferase 21 IU/L (14-36); BUN Creatinine Ratio 17.3 (6-22); Bilirubin Total 0.4 mg/dL (0.2-1.3); Blood Urea Nitrogen 17 mg/dL (7-17); Calcium 8.6 mg/dL (8.4-10.2); Carbon Dioxide 28 mmol/L (22-32); Chloride 104 mmol/L (98-107); Estimated Glomerular Filt Rate > 60 mL/min (>60); Globulin 3.2 g/dL (1.7-4.1); Glucose 123 mg/dL (80-110); HEMOLYSIS < 15 (0-50); Potassium 3.9 mmol/L (3.4-5.1); Sodium 136 mmol/L (137-145); Total Protein 6.8 g/dL (6.3-8.2)
[2022-10-11] MEDS: SODIUM CHLORIDE 0.9% 1,000 ML 150 ML IV (02:49)
--- NOTE | 2022-10-11 06:20 | P.HP_ITS ---
History of Present Illness History of Present Illness Date Patient Seen: 10/11/22 Time Patient Seen: 06:20 Chief complaint: feels like food is stuck in throat Narrative: Was eating pork around 4pm yesterday. [place] like the food stuck in lower esophagus. Difficulty with her own secretions and pain in lower chest. On Coumadin. 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 Happened once before but did not require intervention PFSH Medical History Breast cancer (1995) CHF (congestive heart failure) Chronic pain CKD (chronic kidney disease), stage III Dementia with behavioral disturbance Depression Diverticulitis Generalized anxiety disorder HLD (hyperlipidemia) HTN (hypertension) IBS (irritable bowel syndrome) Narcotic dependency, continuous PAF (paroxysmal atrial fibrillation) Vertigo Surgical History H/O aortic valve replacement (02/2012) History of colon surgery History of hysterectomy History of total left knee replacement History of total replacement of right hip Hx of bariatric surgery Hx of bilateral mastectomy (1995) Hx of esophagogastroduodenoscopy Social History household members: children Smoking Status: Never smoker alcohol intake: former Meds Home Medications and Allergies Home Medications Medication Instructions Recorded Confirmed Type albuterol sulfate 90 mcg/actuation 2 puff inhalation Q4-6H PRN 09/17/21 09/17/21 History aerosol inhaler Wheezing diltiazem HCl 240 mg 240 mg PO DAILY 09/17/21 09/24/21 History capsule,extended release 24 hr gabapentin 100 mg capsule 200 mg PO BID 09/17/21 09/17/21 History levothyroxine 75 mcg tablet 75 mcg PO DAILY 09/17/21 09/17/21 History lisinopril 10 mg tablet 10 mg PO DAILY 09/17/21 09/17/21 History methocarbamol 500 mg tablet 500 mg PO BID PRN Muscle Spasm 09/17/21 09/17/21 History metoprolol succinate 25 mg capsule 25 mg PO DAILY 09/17/21 09/24/21 History sprinkle, ext. release 24 hr morphine 30 mg immediate release 30 mg PO BID 09/17/21 09/24/21 History tablet pravastatin 40 mg tablet 40 mg PO DAILY 09/17/21 09/17/21 History sertraline 50 mg tablet 100 mg PO DAILY 09/17/21 09/17/21 History trazodone 50 mg tablet 25 - 50 mg PO BEDTIME PRN Insomnia 09/17/21 09/17/21 History triamterene 37.5 1 tab PO DAILY 09/17/21 09/17/21 History mg-hydrochlorothiazide 25 mg tablet warfarin 2.5 mg tablet 2.5 mg PO 3XW 09/17/21 09/17/21 History warfarin 5 mg tablet 5 mg PO 4XW 09/17/21 09/17/21 History hydromorphone 4 mg tablet 4 mg PO Q6H PRN pain #40 tabs 09/25/21 Rx (Dilaudid) Allergies Allergy/AdvReac Type Severity Reaction Status Date / Time Latex, Natural Rubber Allergy Mild Verified 09/24/21 08:10 metal Allergy Uncoded 09/24/21 08:11 Review of Systems Review of Systems ROS: Yes All systems reviewed with the patient and are negative except as otherwise documented Exam Vital Signs (past 8 hours): - 10/11/22 00:46 10/11/22 00:54 10/11/22 00:55 Temperature 97.4 F L Pulse Rate 66 68 67 Respiratory Rate 18 18 16 Blood Pressure 210/87 H Pulse Oximetry 96 97 97 Oxygen Delivery Method Room Air 10/11/22 00:55 10/11/22 01:00 10/11/22 01:30 Temperature Pulse Rate 65 66 Respiratory Rate 14 16 Blood Pressure 221/84 H Pulse Oximetry 96 98 Oxygen Delivery Method 10/11/22 01:44 10/11/22 01:44 10/11/22 02:00 Temperature Pulse Rate 64 63 Respiratory Rate 23 18 Blood Pressure 217/87 H Pulse Oximetry 94 92 Oxygen Delivery Method Room Air 10/11/22 02:18 10/11/22 02:18 10/11/22 02:30 Temperature Pulse Rate 75 74 Respiratory Rate 17 16 Blood Pressure 216/88 H Pulse Oximetry 96 95 Oxygen Delivery Method 10/11/22 03:00 10/11/22 03:01 10/11/22 03:01 Temperature Pulse Rate 75 72 Respiratory Rate 20 15 Blood Pressure 180/80 H Pulse Oximetry 95 95 Oxygen Delivery Method Room Air 10/11/22 03:30 10/11/22 04:00 10/11/22 04:00 Temperature Pulse Rate 75 78 Respiratory Rate 26 H 19 Blood Pressure 201/79 H Pulse Oximetry 93 95 Oxygen Delivery Method 10/11/22 04:12 10/11/22 04:12 10/11/22 04:30 Temperature Pulse Rate 81 75 Respiratory Rate 21 17 Blood Pressure 214/92 H Pulse Oximetry 97 95 Oxygen Delivery Method 10/11/22 05:00 10/11/22 05:01 10/11/22 05:01 Temperature Pulse Rate 75 74 Respiratory Rate 14 13 Blood Pressure 179/74 H Pulse Oximetry 95 96 Oxygen Delivery Method 10/11/22 05:30 10/11/22 06:00 10/11/22 06:00 Temperature Pulse Rate 75 74 Respiratory Rate 19 20 Blood Pressure 177/73 H Pulse Oximetry 91 95 Oxygen Delivery Method Oxygen Delivery Method Room Air Const General: cooperative, comfortable and frail appearing Nutritional Appearance: overweight Orientation: alert, awake and oriented x3 HENMT Head: normal to inspection, normocephalic and atraumatic Eyes General: appearance normal, both eyes and all related structures Sclera: sclerae normal Neck Neck: trachea midline Resp Effort & Inspection: normal respiratory effort and able to speak in complete sentences Cardio Rate: regular rate Rhythm: abnormal rhythm GI Palpation: soft Skin General: atrophy and lichenification Hair: brittle Neuro General: patient alert, patient awake and patient oriented x3 Psych Mental Status: mental status grossly normal Affect: normal affect Judgment: judgment good Objective Labs 10/11/22 01:40 10/11/22 01:40 Labs: Laboratory Results - last 24 hr 10/11/22 10/11/22 10/11/22 01:40 01:40 01:40 WBC 11.1 H RBC 4.24 Hgb 12.2 Hct 37.0 MCV 87.4 MCH 28.7 MCHC 32.9 RDW 15.6 H Plt Count 206 Neut % (Auto) 76.7 H Lymph % (Auto) 13.6 L [place] % (Auto) 6.1 Eos % (Auto) 3.0 Baso % (Auto) 0.6 Neut # (Auto) 8500 H Lymph # (Auto) 1500 [place] # (Auto) 700 Eos # (Auto) 300 Baso # (Auto) 100 PT 18.6 H INR 1.6 H Sodium 136 L Potassium 3.9 Chloride 104 Carbon Dioxide 28 BUN 17 Creatinine 0.98 Estimated GFR > 60 BUN/Creatinine Ratio 17.3 Glucose 123 H Calcium 8.6 Total Bilirubin 0.4 AST 21 ALT 17 Alkaline Phosphatase 75 Total Protein 6.8 Albumin 3.6 Globulin 3.2 Albumin/Globulin Ratio 1.1 Assessment & Plan Assessment & Plan narrative: Food bolus in esophagus. H/o Christal En Y gastric bypass. Plan EGD with anesthesia. NO reversal of coumadin. INR 1.6 Time Spent With Patient Time with patient: less than 30 minutes
[2022-10-11] MEDS: LACTATED RINGERS 1,000 ML 42 ML IV (06:29)
--- NOTE | 2022-10-11 07:01 | PM.OP.EGD ---
Operative Date/Time/Diagnoses Date of procedure: 10/11/22 Time of procedure: 07:01 Pre-op diagnosis: foreign body in esophagus Post-op diagnosis: same Procedure & Clinicians Study performed: EGD with general anesthesia Same procedure as scheduled: Yes Indications: foreign body in esophagus Surgeon: Jerrica Owen Procedure Notes Procedure in detail: Preop diagnosis: Foreign body in the esophagus Postop diagnosis: Same Operative procedure: EGD with removal of foreign body using general anesthetic Surgeon: Ginny Owen MD Findings: Food bolus was actually in the gastric pouch but would not proceed down the Christal Y limb. No evidence of ulceration, no evidence of stricture. Food bolus was manually pushed down the jejunal limb and flushed with water. Procedure: Patient placed in lateral position. Anesthetic was provided. Scope was inserted into the esophagus advanced down the esophagus under direct vision with insufflation. The gastric pouch was easily visualized without stricture at the GE junction or stricture at the G-J junction. There appeared to be no impediment or reason for the food bolus to remain in the pouch, but it has been there for over 16 hours without passage. Food bolus was manually pushed into the jejunal limb and flushed further with water. Insufflation and extraction of the scope showed no other abnormalities of gastric pouch or esophagus. Impression: Piece of pork sitting in the gastric pouch for over 16 hours without advancement. No evidence of ulcerations or strictures. No abnormalities of the Christal-en-Y pouch or limb. Plan: Home with advice for more thorough chewing prior to swallowing any form of meat. Findings: other findings (Food bolus in gastric pouch for 16 hours without passage) Specimen(s): none sent Complications: none
== END 2022-10-11 07:30 | disposition home or self-care (01) ==
LOC: ED 06:09 → AC 07:06 → ENDO 09:55
PROVIDERS: Emergency Provider Emergency Medicine; PCP Acupuncturist; Referring Provider Emergency Medicine; Visit Provider Surgery
PROC: 0DJ08ZZ Inspection of Upper Intestinal Tract, Via Natural or Artificial Opening Endoscopic (ICD-10-PCS; CPT 43235; principal; 2022-10-11 07:30)
DX: T17.228A Food in pharynx causing other injury, initial encounter (principal); I48.0 Paroxysmal atrial fibrillation; M79.7 Fibromyalgia; F19.20 Other psychoactive substance dependence, uncomplicated; Z79.01 Long term (current) use of anticoagulants; I13.0 Hypertensive heart and chronic kidney disease with heart failure and stage 1 through stage 4 chronic kidney disease, or unspecified chronic kidney disease; N18.30 Chronic kidney disease, stage 3 unspecified; I50.9 Heart failure, unspecified; Z95.2 Presence of prosthetic heart valve; E03.9 Hypothyroidism, unspecified
CPT/HCPCS: 43235; 36415; 80053; 85025; 85610; 96361; 96374; 96376; 99231; 99284; J1170

== ENCOUNTER 2022-12-03 17:06 | Emergency (ER) | payer OTHER, SELFPAY ==
[2021-09-24 11:21] VITALS: BMI 35.9
[2022-12-03 17:43] VITALS: BP 203/84; PULSE 77; RESP 20; TEMP 36.6; O2SAT 98; BMI 36.4
[2022-12-03 17:57] VITALS: PULSE 79; RESP 29
[2022-12-03 17:58] VITALS: BP 198/89; PULSE 79; RESP 20; O2SAT 97
[2022-12-03 18:00] VITALS: BP 193/92; PULSE 75; RESP 21; O2SAT 96
--- NOTE | 2022-12-03 18:00 | DI.CT.S_ITS ---
PROCEDURE: CT HEAD/BRAIN WO CON INDICATIONS: fall TECHNIQUE: Noncontrast 4.5 mm thick angled axial sections acquired from the foramen magnum to the vertex, with coronal and sagittal reformats. For radiation dose reduction, the following was used: automated exposure control, adjustment of mA and/or kV according to patient size. COMPARISON: None. FINDINGS: Image quality: Excellent. CSF spaces: Basal cisterns are patent. No extra-axial fluid collections. The ventricles are symmetric in size and shape. Brain: No intracranial bleeds or masses. There is cerebral volume loss for age, with resultant ventricular and sulcal prominence. There are periventricular and deep white matter chronic small vessel ischemic changes. There is intracranial internal carotid artery atherosclerosis. Skull and face: Right periorbital soft tissue swelling. Calvarium and visualized facial bones appear intact, without suspicious lesions. Sinuses: Visualized sinuses and mastoids are clear. IMPRESSION: 1. No acute intracranial abnormality. Dictated by: Sakshi Crocker M.D. on 12/03/2022 at 18:55 Approved by: Sakshi Crocker M.D. on 12/03/2022 at 18:55
--- NOTE | 2022-12-03 18:01 | DI.RAD.S_ITS ---
PROCEDURE: XR KNEE RT 3V INDICATIONS: fall TECHNIQUE: 3 views of the knee were acquired. COMPARISON: None. FINDINGS: Bones: No fractures or dislocations. No suspicious bony lesions. Knee arthroplasty has been performed. Soft tissues: No joint effusion. No suspicious soft tissue calcifications. IMPRESSION: Postsurgical sequelae. No acute fracture. No osseous lesion. If symptoms and/or clinical suspicion for pathology persist, further assessment with repeat, or advanced imaging (e.g., CT, MRI, or bone scan) may be helpful for further assessment. Dictated by: Sakshi Crocker M.D. on 12/03/2022 at 18:52 Approved by: Sakshi Crocker M.D. on 12/03/2022 at 18:52
[2022-12-03 18:17] LABS: Add Manual Diff / Slide Review NO; Basophils Absolute Auto 100 /uL (0-100); Basophils Percent Auto 0.6 % (0-2); Eosinophils Absolute Auto 300 /uL (0-450); Eosinophils Percent Auto 3.3 % (2-4); Hemoglobin 13.5 g/dL (12.0-16.0); Lymphocytes Absolute Auto 1300 /uL (1100-4500); Lymphocytes Percent Auto 13.9 % (25-40); Mean Corpuscular HGB Conc 32.9 % (30-36); Monocytes Absolute Auto 700 /uL (0-900); Neutrophils Absolute Auto 7000 /uL (1500-7000); Neutrophils Percent Auto 75.2 % (50-75); Platelet Count 224 X10^3/uL (150-400); Red Blood Cell Count 4.66 X10^6/uL (4.0-5.2); Red Cell Distribution Width 14.9 % (11.6-14.8); White Blood Cell Count 9.3 X10^3/uL (4.5-11.0)
[2022-12-03 18:25] LABS: INR 1.6 (0.9-1.3)
[2022-12-03 18:28] LABS: PTT Partial Thromboplastin Tim 41 SECONDS (26-36)
[2022-12-03 18:30] VITALS: PULSE 76; RESP 19; O2SAT 95
[2022-12-03 18:39] LABS: Alanine Aminotransferase 19 IU/L (<35); Albumin Globulin Ratio 1.1 (1.0-2.8); Alkaline Phosphatase 84 U/L (38-126); Aspartate Aminotransferase 26 IU/L (14-36); Bilirubin Total 0.3 mg/dL (0.2-1.3); Blood Urea Nitrogen 16 mg/dL (7-17); Calcium 9.1 mg/dL (8.4-10.2); Carbon Dioxide 28 mmol/L (22-32); Chloride 106 mmol/L (98-107); Estimated Glomerular Filt Rate 51 mL/min (>60); Globulin 3.6 g/dL (1.7-4.1); Glucose 108 mg/dL (80-110); HEMOLYSIS < 15 (0-50); Potassium 3.7 mmol/L (3.4-5.1); Sodium 139 mmol/L (137-145); Total Protein 7.6 g/dL (6.3-8.2)
[2022-12-03 19:00] VITALS: PULSE 73; RESP 24; O2SAT 96
--- NOTE | 2022-12-03 19:04 | ED.FALL ---
HPI - Fall General Chief Complaint: Fall Stated Complaint: Fall on thinners Time Seen by Provider: 12/03/22 18:00 Source: patient and family Mode of arrival: Wheelchair History of Present Illness HPI Narrative: Patient is a 72-year-old female. She is on anticoagulation. She is here for injuries that she sustained when she states she tripped over a cord at home. She fell forward and landed on her right knee and then hit her head. There was no loss of consciousness. No neck pain. She does have swelling above her right eye. She reports no other injuries from the event. Has been ambulatory since the event. Pelvis is stable. No arm pain. There was no loss of consciousness. Related Data Home Medications Medication Instructions Recorded Confirmed albuterol sulfate 90 mcg/actuation 2 puff inhalation Q4-6H PRN 09/17/21 10/11/22 aerosol inhaler Wheezing diltiazem HCl 240 mg 240 mg PO DAILY 09/17/21 10/11/22 capsule,extended release 24 hr gabapentin 100 mg capsule 200 mg PO BID 09/17/21 09/17/21 levothyroxine 75 mcg tablet 75 mcg PO DAILY 09/17/21 09/17/21 lisinopril 10 mg tablet 10 mg PO DAILY 09/17/21 09/17/21 methocarbamol 500 mg tablet 500 mg PO BID PRN Muscle Spasm 09/17/21 09/17/21 metoprolol succinate 25 mg capsule 25 mg PO DAILY 09/17/21 10/11/22 sprinkle, ext. release 24 hr morphine 30 mg immediate release 30 mg PO BID 09/17/21 09/24/21 tablet pravastatin 40 mg tablet 40 mg PO DAILY 09/17/21 09/17/21 sertraline 50 mg tablet 100 mg PO DAILY 09/17/21 09/17/21 trazodone 50 mg tablet 25 - 50 mg PO BEDTIME PRN Insomnia 09/17/21 09/17/21 triamterene 37.5 1 tab PO DAILY 09/17/21 09/17/21 mg-hydrochlorothiazide 25 mg tablet warfarin 2.5 mg tablet 2.5 mg PO 3XW 09/17/21 10/11/22 warfarin 5 mg tablet 5 mg PO 4XW 09/17/21 09/17/21 Previous Rx's Medication Instructions Recorded hydromorphone 4 mg tablet 4 mg PO Q6H PRN pain #40 tabs 09/25/21 (Dilaudid) Allergies Allergy/AdvReac Type Severity Reaction Status Date / Time Latex, Natural Rubber Allergy Mild Verified 12/03/22 17:49 metal Allergy Uncoded 12/03/22 17:49 Review of Systems Constitutional Constitutional: Reports system reviewed and no additional complaints, except as documented ENT Ears, Nose, Mouth, and Throat: Reports system reviewed and no additional complaints, except as documented Respiratory Respiratory: Reports system reviewed and no additional complaints, except as documented Gastrointestinal Gastrointestinal: Reports system reviewed and no additional complaints, except as documented Musculoskeletal Musculoskeletal: Reports system reviewed and no additional complaints, except as documented Integumentary/Breasts Skin/Breast: Reports system reviewed and no additional complaints, except as documented Neurologic Neurologic: Reports system reviewed and no additional complaints, except as documented Hematologic/Lymphatic On Anticoagulants: Yes Patient History Medical History Breast cancer (1995) CHF (congestive heart failure) Chronic pain CKD (chronic kidney disease), stage III Dementia with behavioral disturbance Depression Diverticulitis Generalized anxiety disorder HLD (hyperlipidemia) HTN (hypertension) IBS (irritable bowel syndrome) Narcotic dependency, continuous PAF (paroxysmal atrial fibrillation) Vertigo Surgical History H/O aortic valve replacement (02/2012) History of colon surgery History of hysterectomy History of total left knee replacement History of total replacement of right hip Hx of bariatric surgery Hx of bilateral mastectomy (1995) Hx of esophagogastroduodenoscopy Social History household members: children Smoking Status: Never smoker alcohol intake: former Smoking Status: Never smoker alcohol intake frequency: 0-2 drinks per day Substance Use Type: does not use Exam Initial Vital Signs Initial Vital Signs: Vital Signs Temperature 97.9 F 12/03/22 17:43 Pulse Rate 77 12/03/22 17:43 Respiratory Rate 20 12/03/22 17:43 Blood Pressure 203/84 H 12/03/22 17:43 Pulse Oximetry 98 12/03/22 17:43 Oxygen Delivery Method Room Air 12/03/22 17:43 Const General: cooperative, comfortable and No ill appearing HENMT Head: contusion ( above right eye) Eyes Periorbital: periorbital findings normal Resp Effort & Inspection: normal respiratory effort Auscultation: clear to auscultation bilaterally Cardio Rate: regular rate Rhythm: regular rhythm Back/Spine/Pelvis Cervical Spine: No cervical spinal tenderness Skin Other: contusion above the right eye Neuro General: patient alert and patient awake Extrem Other: discomfort and some swelling to the right knee. Scores GCS [place] coma scale eye opening: Spontaneous [place] coma scale verbal response: Orientated [place] coma scale motor response: Obey commands Ted coma scale total score: 15 Nexus Score for C-Spine Focal Neurologic deficit present: No Midline spinal tenderness present: No Altered level of conciousness present: No Intoxication present: No Distracting Injury Present: No Nexus Criteria for C-spine: 0 Course Orders Ordered: ED Orders 12/03/22 18:00 CT head/brain wo con Stat 12/03/22 18:01 XR knee RT 3V Stat 12/03/22 18:05 Complete Blood Count AUTO DIFF Stat Comprehensive Metabolic Panel Stat PTT Partial Thromboplastin Jose D Stat Prothrombin Time INR Stat Vital Signs Vital signs: Vital Signs - 8 hr 12/03/22 19:00 Pulse Rate 73 Respiratory Rate 24 Pulse Oximetry 96 MDM - Fall Lab Data Attestation: I reviewed the patient's lab results. 12/03/22 18:05 12/03/22 18:05 Labs: Lab Results 12/03/22 12/03/22 12/03/22 Range/Units 18:05 18:05 18:05 WBC 9.3 (4.5-11.0) X10^3/uL RBC 4.66 (4.0-5.2) X10^6/uL Hgb 13.5 (12.0-16.0) g/dL Hct 41.0 (36-46) % MCV 88.0 (80-100) fL MCH 29.0 (26-34) PG MCHC 32.9 (30-36) % RDW 14.9 H (11.6-14.8) % Plt Count 224 (150-400) X10^3/uL Neut % (Auto) 75.2 H (50-75) % Lymph % (Auto) 13.9 L (25-40) % [place] % (Auto) 7.0 (3-14) % Eos % (Auto) 3.3 (2-4) % Baso % (Auto) 0.6 (0-2) % Neut # (Auto) 7000 (1604-8180) /uL Lymph # (Auto) 1300 (8763-5931) /uL [place] # (Auto) 700 (0-900) /uL Eos # (Auto) 300 (0-450) /uL Baso # (Auto) 100 (0-100) /uL PT 19.0 H (10.1-12.7) SECONDS INR 1.6 H (0.9-1.3) APTT 41 H (26-36) SECONDS Sodium 139 (137-145) mmol/L Potassium 3.7 (3.4-5.1) mmol/L Chloride 106 (98-107) mmol/L Carbon Dioxide 28 (22-32) mmol/L BUN 16 (7-17) mg/dL Creatinine 1.14 H (0.52-1.04) mg/dL Estimated GFR 51 L (>60) mL/min BUN/Creatinine Ratio 14.0 (6-22) Glucose 108 (80-110) mg/dL Calcium 9.1 (8.4-10.2) mg/dL Total Bilirubin 0.3 (0.2-1.3) mg/dL AST 26 (14-36) IU/L ALT 19 (<35) IU/L Alkaline Phosphatase 84 (38-126) U/L Total Protein 7.6 (6.3-8.2) g/dL Albumin 4.0 (3.5-5.0) g/dL Globulin 3.6 (1.7-4.1) g/dL Albumin/Globulin Ratio 1.1 (1.0-2.8) Imaging Data CT scan - head: Radiologist's Impression: PROCEDURE:? CT HEAD/BRAIN WO CON ? INDICATIONS:? fall ? TECHNIQUE:? Noncontrast 4.5 mm thick angled axial sections acquired from the foramen magnum to the vertex, with coronal and sagittal reformats.? For radiation dose reduction, the following was used:? automated exposure control, adjustment of mA and/or kV according to patient size.? ? COMPARISON:? None. ? FINDINGS:? Image quality:? Excellent.? ? CSF spaces:? Basal cisterns are patent.? No extra-axial fluid collections.? The ventricles are symmetric in size and shape.? ? Brain:? No intracranial bleeds or masses.? There is cerebral volume loss for age, with resultant ventricular and sulcal prominence.? There are periventricular and deep white matter chronic small vessel ischemic changes.? There is intracranial internal carotid artery atherosclerosis.? ? Skull and face:? Right periorbital soft tissue swelling.? Calvarium and visualized facial bones appear intact, without suspicious lesions.? ? Sinuses:? Visualized sinuses and mastoids are clear.? ? IMPRESSION:? 1. No acute intracranial abnormality.? Extremity x-ray #1: Radiologist's Impression: PROCEDURE:? XR KNEE RT 3V ? INDICATIONS:? fall ? TECHNIQUE:? 3 views of the knee were acquired.? ? COMPARISON:? None. ? FINDINGS:? ? Bones:? No fractures or dislocations.? No suspicious bony lesions.? Knee arthroplasty has been performed. ? Soft tissues:? No joint effusion.? No suspicious soft tissue calcifications.? ? ? IMPRESSION:? Postsurgical sequelae. No acute fracture. No osseous lesion. If symptoms and/or clinical suspicion for pathology persist, further assessment with repeat, or advanced imaging (e.g., CT, MRI, or bone scan) may be helpful for further assessment. MDM Narrative Medical decision making narrative: CT scans and x-rays are unremarkable. Cervical spine is cleared by nexus criteria. Patient reports no other injuries from the event.This was a mechanical fall. She does have bruising above the right eye we discussed this and things she could try at home to help with the symptoms. She was given return precautions. She expressed understanding and agreement. Discharge Plan Departure Patient Disposition: Home Clinical Impression: Forehead contusion, Contusion of knee, right, Fall Instructions: DI for Contusion, How to Prevent Falls Activity Restrictions/Additional Instructions: Continue to take all of your medications as directed. I do recommend that you place ice over your right knee and also above your right eye. You could take Tylenol for any discomfort. Return to the emergency department for new or worsening symptoms. Prescriptions: No Action methocarbamol 500 mg Tablet 500 mg PO BID PRN (Reason: Muscle Spasm) trazodone 50 mg Tablet 25 - 50 mg PO BEDTIME PRN (Reason: Insomnia) pravastatin 40 mg Tablet 40 mg PO DAILY diltiazem HCl 240 mg Capsule,Extended Release 24hr 240 mg PO DAILY warfarin 2.5 mg Tablet 2.5 mg PO 3XW levothyroxine 75 mcg Tablet 75 mcg PO DAILY morphine 30 mg Tablet 30 mg PO BID lisinopril 10 mg Tablet 10 mg PO DAILY warfarin 5 mg Tablet 5 mg PO 4XW triamterene-hydrochlorothiazid 37.5-25 mg Tablet 1 tab PO DAILY gabapentin 100 mg Capsule 200 mg PO BID albuterol sulfate 90 mcg/actuation Hfa Aerosol Inhaler 2 puff INHALATION Q4-6H PRN (Reason: Wheezing) sertraline 50 mg Tablet 100 mg PO DAILY metoprolol succinate 25 mg Capsule,Sprinkle,Er 24hr 25 mg PO DAILY hydromorphone [Dilaudid] 4 mg tablet 4 mg PO Q6H PRN (Reason: pain) Qty: 40 0RF Rx Instructions: post op pain Referrals: Quincy Huerta L[facility] [Primary Care Provider] - Stand Alone Forms: Patient Portal/API
== END 2022-12-03 19:18 | disposition home or self-care (01) ==
PROVIDERS: Emergency Provider Emergency Medicine; PCP Acupuncturist
DX: S00.83XA Contusion of other part of head, initial encounter (principal); S80.01XA Contusion of right knee, initial encounter; Z79.01 Long term (current) use of anticoagulants; W01.0XXA Fall on same level from slipping, tripping and stumbling without subsequent striking against object, initial encounter; Z79.899 Other long term (current) drug therapy
CPT/HCPCS: 36415; 70450; 73562; 80053; 85025; 85610; 85730; 99284

== ENCOUNTER 2023-04-01 11:56 | Emergency (ER) | payer OTHER, SELFPAY ==
[2021-09-24 11:21] VITALS: BMI 35.9
[2023-04-01] VITALS (10 sets, daily range): BP systolic 177–190; BP diastolic 76–84; PULSE 72–79; RESP 19–24; TEMP 36.6; O2SAT 92–100; BMI 40.4
--- NOTE | 2023-04-01 12:09 | DI.RAD.S_ITS ---
PROCEDURE: XR CHEST 1V INDICATIONS: Shortness of breath TECHNIQUE: One view of the chest was acquired. COMPARISON: [facility], CR, XR CHEST 1 VIEW, 02/03/2021, 11:57. [facility], CR, XR CHEST 1 VIEW, 06/05/2021, 20:37. FINDINGS: Surgical changes and devices: None. Lungs and pleura: Lungs are abnormal with a chronic mild interstitial prominence and what appears to be possibly pleural plaquing or calcifications at the left upper lobe and right mid lung, little if any changed over prior plain film imaging including in January of 2021. . No pleural effusions or pneumothorax. Mediastinum: Mediastinal contours appear normal. Heart size is normal. Bones and chest wall: No suspicious bony lesions. Overlying soft tissues appear unremarkable. IMPRESSION: Chronic interstitial prominence, probable pleural plaquing or calcifications as discussed bilaterally, greater on the left than the right. A definite source of new shortness of breath is not seen. Dictated by: Johny Nuñez M.D. on 04/01/2023 at 13:01 Approved by: Johny Nuñez M.D. on 04/01/2023 at 13:03
[2023-04-01 12:37] LABS: Add Manual Diff / Slide Review NO; Basophils Absolute Auto 0 /uL (0-100); Basophils Percent Auto 0.6 % (0-2); Eosinophils Absolute Auto 400 /uL (0-450); Eosinophils Percent Auto 6.2 % (2-4); Hematocrit 41.8 % (36-46); Lymphocytes Absolute Auto 1400 /uL (1100-4500); Lymphocytes Percent Auto 20.5 % (25-40); Mean Corpuscular HGB Conc 33.5 % (30-36); Mean Corpuscular Hemoglobin 29.3 PG (26-34); Mean Corpuscular Volume 87.4 fL (80-100); Monocytes Absolute Auto 500 /uL (0-900); Monocytes Percent Auto 7.1 % (3-14); Neutrophils Absolute Auto 4300 /uL (1500-7000); Neutrophils Percent Auto 65.6 % (50-75); Platelet Count 205 X10^3/uL (150-400); Red Blood Cell Count 4.79 X10^6/uL (4.0-5.2); White Blood Cell Count 6.6 X10^3/uL (4.5-11.0)
[2023-04-01 12:39] LABS: INR 2.8 (0.9-1.3)
[2023-04-01 12:48] LABS: Alanine Aminotransferase 20 IU/L (<35); Albumin 4.1 g/dL (3.5-5.0); Albumin Globulin Ratio 1.1 (1.0-2.8); Alkaline Phosphatase 84 U/L (38-126); Aspartate Aminotransferase 29 IU/L (14-36); BUN Creatinine Ratio 16.3 (6-22); Bilirubin Total 0.5 mg/dL (0.2-1.3); Blood Urea Nitrogen 16 mg/dL (7-17); Calcium 9.2 mg/dL (8.4-10.2); Carbon Dioxide 28 mmol/L (22-32); Chloride 104 mmol/L (98-107); Estimated Glomerular Filt Rate > 60 mL/min (>60); Globulin 3.7 g/dL (1.7-4.1); Glucose 125 mg/dL (80-110); HEMOLYSIS < 15 (0-50); Potassium 3.7 mmol/L (3.4-5.1); Sodium 137 mmol/L (137-145); Total Protein 7.8 g/dL (6.3-8.2)
[2023-04-01 12:49] LABS: Lactate (Lactic Acid) 0.7 mmol/L (0.7-2.1)
[2023-04-01 13:00] LABS: NT-proBNP (BNP-Adult 18+) 43 pg/mL (<125); Troponin I < 0.012 ng/mL (0.01-0.034)
[2023-04-01 13:09] LABS: Influenza A - CEPHEID Flu A NEGATIVE (NEGATIVE); Influenza B - CEPHEID Flu B NEGATIVE (NEGATIVE); Respiratory Syncytial Virus Negative (Negative)
[2023-04-01 13:52] LABS: COVID-19 CEPHEID 4-PLEX PCR Negative (Negative)
--- NOTE | 2023-04-01 14:57 | ED_ITS ---
HPI - URI/Sore Throat General Chief Complaint: Upper Respiratory Symptoms Stated Complaint: poss pnemonia/sent by [facility] Time Seen by Provider: 04/01/23 14:29 Source: patient and family Mode of arrival: Wheelchair History of Present Illness HPI Narrative: Patient is a 73-year-old female who has mechanical heart valve replacement anticoagulated on warfarin, paroxysmal atrial fibrillation, fibromyalgia, hypertension presenting today with ongoing cough. She says she is not felt well for about a week and a half. She tries to cough stuff up but it does not quite come up. She does not have significant shortness of breath with exertion or at rest. She denies any orthopnea. No peripheral edema. She is not had any fever or chills. She just generally does not feel well. She is currently afebrile denies fever at home Related Data Home Medications Medication Instructions Recorded Confirmed albuterol sulfate 90 mcg/actuation 2 puff inhalation Q4-6H PRN 09/17/21 04/01/23 aerosol inhaler Wheezing diltiazem HCl 240 mg 240 mg PO DAILY 09/17/21 04/01/23 capsule,extended release 24 hr gabapentin 100 mg capsule 200 mg PO BID 09/17/21 04/01/23 levothyroxine 75 mcg tablet 75 mcg PO DAILY 09/17/21 04/01/23 lisinopril 10 mg tablet 10 mg PO DAILY 09/17/21 04/01/23 methocarbamol 500 mg tablet 500 mg PO BID PRN Muscle Spasm 09/17/21 04/01/23 metoprolol succinate 25 mg capsule 25 mg PO DAILY 09/17/21 04/01/23 sprinkle, ext. release 24 hr morphine 30 mg immediate release 30 mg PO BID 09/17/21 04/01/23 tablet pravastatin 40 mg tablet 40 mg PO DAILY 09/17/21 04/01/23 sertraline 50 mg tablet 100 mg PO DAILY 09/17/21 04/01/23 trazodone 50 mg tablet 25 - 50 mg PO BEDTIME PRN Insomnia 09/17/21 04/01/23 triamterene 37.5 1 tab PO DAILY 09/17/21 04/01/23 mg-hydrochlorothiazide 25 mg tablet warfarin 2.5 mg tablet 2.5 mg PO 3XW 09/17/21 04/01/23 warfarin 5 mg tablet 5 mg PO 4XW 09/17/21 04/01/23 Previous Rx's Medication Instructions Recorded hydromorphone 4 mg tablet 4 mg PO Q6H PRN pain #40 tabs 09/25/21 (Dilaudid) albuterol sulfate 90 mcg/actuation 2 puff inhalation Q4-6H PRN 04/01/23 aerosol inhaler shortness of breath or wheezing #8.5 grams Allergies Allergy/AdvReac Type Severity Reaction Status Date / Time Latex, Natural Rubber Allergy Mild Verified 04/01/23 11:36 metal Allergy Uncoded 04/01/23 11:36 Patient History Medical History PAF (paroxysmal atrial fibrillation) Dementia with behavioral disturbance Narcotic dependency, continuous Generalized anxiety disorder Chronic pain CKD (chronic kidney disease), stage III Vertigo Diverticulitis Breast cancer (1995) IBS (irritable bowel syndrome) HTN (hypertension) HLD (hyperlipidemia) CHF (congestive heart failure) Depression Surgical History H/O aortic valve replacement (02/2012) History of colon surgery History of total replacement of right hip History of total left knee replacement Hx of esophagogastroduodenoscopy History of hysterectomy Hx of bariatric surgery Hx of bilateral mastectomy (1995) Social History household members: children Smoking Status: Never smoker alcohol intake: former Smoking Status: Never smoker alcohol intake frequency: 0-2 drinks per day Substance Use Type: does not use Exam Initial Vital Signs Initial Vital Signs: Vital Signs Temperature 97.8 F 04/01/23 12:02 Pulse Rate 78 04/01/23 12:02 Respiratory Rate 20 04/01/23 12:02 Blood Pressure 177/84 H 04/01/23 12:02 Pulse Oximetry 92 04/01/23 12:02 Oxygen Delivery Method Room Air 04/01/23 12:02 GENERAL: Alert 73-year-old female and in no acute distress. HEENT: Head atraumatic,EOMI, pupils reactive, face symmetric, moist mucous membranes CARDIOVASCULAR: Regular rate and rhythm without murmurs, rubs or gallops. RESPIRATORY: Slight wheezing no respiratory distress speaks in full sentences ABDOMEN: Soft, nontender. Normoactive bowel sounds all 4 quadrants. No guarding or rebound. EXTREMITIES: Normal range of motion, no clubbing or pitting edema. Neurovascularly intact NEUROLOGICAL: Alert and oriented x4.Normal gait and speech. SKIN: Warm, dry, no laceration, no petechiae, no rashes or lesions. Course Orders Ordered: Discontinued Medications Albuterol/Ipratropium (Albuterol/Ipratropium 3 Ml Ampul) 3 ml INH NOW ONE Stop: 04/01/23 15:03 Last Admin: 04/01/23 15:21 Dose: 3 ml Documented By: NL Vital Signs Vital signs: Vital Signs - 8 hr 04/01/23 12:02 04/01/23 13:41 04/01/23 13:43 Temperature 97.8 F Pulse Rate 78 79 Respiratory Rate 20 24 Blood Pressure 177/84 H 180/78 H Pulse Oximetry 92 Oxygen Delivery Method Room Air 04/01/23 13:43 04/01/23 14:00 04/01/23 14:00 Temperature Pulse Rate 77 74 Respiratory Rate 24 22 Blood Pressure 183/76 H Pulse Oximetry 95 93 Oxygen Delivery Method 04/01/23 14:30 04/01/23 14:31 04/01/23 14:31 Temperature Pulse Rate 72 74 Respiratory Rate 19 20 Blood Pressure 190/76 H Pulse Oximetry 93 93 Oxygen Delivery Method 04/01/23 15:00 04/01/23 15:00 Temperature Pulse Rate 72 Respiratory Rate 23 Blood Pressure 178/81 H Pulse Oximetry 93 Oxygen Delivery Method MDM - URI/Sore Throat Lab Data 04/01/23 12:15 04/01/23 12:15 Labs: Lab Results 04/01/23 Range/Units 12:15 WBC 6.6 (4.5-11.0) X10^3/uL RBC 4.79 (4.0-5.2) X10^6/uL Hgb 14.0 (12.0-16.0) g/dL Hct 41.8 (36-46) % MCV 87.4 (80-100) fL MCH 29.3 (26-34) PG MCHC 33.5 (30-36) % RDW 14.0 (11.6-14.8) % Plt Count 205 (150-400) X10^3/uL Neut % (Auto) 65.6 (50-75) % Lymph % (Auto) 20.5 L (25-40) % [place] % (Auto) 7.1 (3-14) % Eos % (Auto) 6.2 H (2-4) % Baso % (Auto) 0.6 (0-2) % Neut # (Auto) 4300 (3602-4794) /uL Lymph # (Auto) 1400 (5679-3054) /uL [place] # (Auto) 500 (0-900) /uL Eos # (Auto) 400 (0-450) /uL Baso # (Auto) 0 (0-100) /uL PT 32.0 H (9.4-12.5) SECONDS INR 2.8 H (0.9-1.3) Sodium 137 (137-145) mmol/L Potassium 3.7 (3.4-5.1) mmol/L Chloride 104 (98-107) mmol/L Carbon Dioxide 28 (22-32) mmol/L BUN 16 (7-17) mg/dL Creatinine 0.98 (0.52-1.04) mg/dL Estimated GFR > 60 (>60) mL/min BUN/Creatinine Ratio 16.3 (6-22) Glucose 125 H (80-110) mg/dL Lactate 0.7 (0.7-2.1) mmol/L Calcium 9.2 (8.4-10.2) mg/dL Total Bilirubin 0.5 (0.2-1.3) mg/dL AST 29 (14-36) IU/L ALT 20 (<35) IU/L Alkaline Phosphatase 84 (38-126) U/L Troponin I < 0.012 (0.01-0.034) ng/mL NT-Pro-B Natriuret Pep 43 (<125) pg/mL Total Protein 7.8 (6.3-8.2) g/dL Albumin 4.1 (3.5-5.0) g/dL Globulin 3.7 (1.7-4.1) g/dL Albumin/Globulin Ratio 1.1 (1.0-2.8) SARS-CoV-2 (PCR) Negative (Negative) Influenza A (RT-PCR) Flu a negative (NEGATIVE) Influenza B (RT-PCR) Flu b negative (NEGATIVE) RSV (PCR) Negative (Negative) Imaging Data Chest x-ray: Radiologist's Impression: PROCEDURE: XR CHEST 1V INDICATIONS: Shortness of breath TECHNIQUE: One view of the chest was acquired. COMPARISON: [facility], CR, XR CHEST 1 VIEW, 02/03/2021, 11:57. [facility], CR, XR CHEST 1 VIEW, 06/05/2021, 20:37. FINDINGS: Surgical changes and devices: None. Lungs and pleura: Lungs are abnormal with a chronic mild interstitial prominence and what appears to be possibly pleural plaquing or calcifications at the left upper lobe and right mid lung, little if any changed over prior plain film imaging including in January of 2021. . No pleural effusions or pneumothorax. Mediastinum: Mediastinal contours appear normal. Heart size is normal. Bones and chest wall: No suspicious bony lesions. Overlying soft tissues appear unremarkable. IMPRESSION: Chronic interstitial prominence, probable pleural plaquing or calcifications as discussed bilaterally, greater on the left than the right. A definite source of new shortness of breath is not seen. Dictated by: Johny Nuñez M.D. on 04/01/2023 at 13:01 ECG Data Interpretation: Sinus rhythm rate 74 VT interval 182 QRS [address] changes MDM Narrative Medical decision making narrative: Patient 73-year-old female presents today with cough increasing weakness not feeling well. At this time her vitals are stable she is afebrile she is no leukocytosis chest x-ray does not show any worsening pneumonia her troponin and BNP are negative. No evidence of congestive heart failure on exam. She is taking Coumadin with a therapeutic INR of 2.8, unlikely to be pulmonary embolism. At this time no need for antibiotics or further evaluation or admission. Likely a viral syndrome a negative. She is given albuterol treatment here which s says helps a little. Vitals are stable at this time no evidence of respiratory distress no for admission. Discharge Plan Departure Patient Disposition: Home Clinical Impression: Upper respiratory infection Instructions: Acute Bronchitis Activity Restrictions/Additional Instructions: *You have been diagnosed with upper respiratory infection *What to do: At this time no evidence of pneumonia blood work is reassuring INR today 2.8 *Continue to take medications as directed Albuterol 1-2 puffs every 4 hours if needed for shortness of breath--> SAFEAY Mucinex as prescribed is okay *Follow up with your primary care provider in 2-3 days or call [phone] *Return to ER if you should have increasing shortness of breath chest pain confusion [or] any new, worsening or concerning symptoms Prescriptions: New albuterol sulfate 90 mcg/actuation HFA aerosol inhaler 2 puff INHALATION Q4-6H PRN (Reason: shortness of breath or wheezing) Qty: 8.5 0RF No Action methocarbamol 500 mg Tablet 500 mg PO BID PRN (Reason: Muscle Spasm) trazodone 50 mg Tablet 25 - 50 mg PO BEDTIME PRN (Reason: Insomnia) pravastatin 40 mg Tablet 40 mg PO DAILY diltiazem HCl 240 mg Capsule,Extended Release 24hr 240 mg PO DAILY warfarin 2.5 mg Tablet 2.5 mg PO 3XW levothyroxine 75 mcg Tablet 75 mcg PO DAILY morphine 30 mg Tablet 30 mg PO BID lisinopril 10 mg Tablet 10 mg PO DAILY warfarin 5 mg Tablet 5 mg PO 4XW triamterene-hydrochlorothiazid 37.5-25 mg Tablet 1 tab PO DAILY gabapentin 100 mg Capsule 200 mg PO BID albuterol sulfate 90 mcg/actuation Hfa Aerosol Inhaler 2 puff INHALATION Q4-6H PRN (Reason: Wheezing) sertraline 50 mg Tablet 100 mg PO DAILY metoprolol succinate 25 mg Capsule,Sprinkle,Er 24hr 25 mg PO DAILY hydromorphone [Dilaudid] 4 mg tablet 4 mg PO Q6H PRN (Reason: pain) Qty: 40 0RF Rx Instructions: post op pain Referrals: Quincy Huerta L[facility] [Primary Care Provider] - Stand Alone Forms: Patient Portal/API
--- NOTE | 2023-04-01 15:13 | PC.NURSE ---
ambulatory to br w/ daughter
[2023-04-01] MEDS: ALBUTEROL/IPRATROPIUM 3 ML AMPUL INH (15:21)
--- NOTE | 2023-04-01 15:29 | PC.NURSE ---
RT at bedside for breathing tx
--- NOTE | 2023-04-01 15:31 | RT ---
pt vinicio de la rosa well, on room air and no distress noted
== END 2023-04-01 15:45 | disposition home or self-care (01) ==
PROVIDERS: Emergency Provider Emergency Medicine; PCP Acupuncturist
DX: J06.9 Acute upper respiratory infection, unspecified (principal); I13.0 Hypertensive heart and chronic kidney disease with heart failure and stage 1 through stage 4 chronic kidney disease, or unspecified chronic kidney disease; I50.9 Heart failure, unspecified; N18.30 Chronic kidney disease, stage 3 unspecified; Z79.01 Long term (current) use of anticoagulants; Z95.2 Presence of prosthetic heart valve; Z79.899 Other long term (current) drug therapy
CPT/HCPCS: 0241U; 36415; 71045; 80053; 83605; 83880; 84484; 85025; 85610; 93005; 93010; 94640; 99283; 99284